=== PATIENT | female | born 1935 | race Caucasian/White ===

== ENCOUNTER 2020-05-20 17:44 | Inpatient (IN) | payer MEDICARE, SELFPAY ==
[2020-05-20 17:56] VITALS: BP 146/80; PULSE 70; PULSE 73; RESP 16; TEMP 36.4; O2SAT 93; O2SAT 98; BMI 27.0
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
[2020-05-20] MEDS: Magnesium Citrate 300 ML PO (21:08)
[2020-05-20] MEDS: Atorvastatin Calcium 40 MG Tablet PO (21:08)
[2020-05-20] MEDS: oxyCODONE 5 MG Tablet PO (22:11)
[2020-05-21 03:29] VITALS: BP 111/59; PULSE 69; RESP 16; TEMP 37.1; O2SAT 95
[2020-05-21] MEDS: amLODIPine 5 MG Tablet PO (05:35)
[2020-05-21] MEDS: Levothyroxine 50 MCG Tablet PO (05:35)
[2020-05-21] MEDS: APIXABAN 2.5 MG TABLET PO ×2 (05:35→17:09)
[2020-05-21 07:07] LABS: Absolute Lymphocyte Count 0.89 X10^3/uL (0.83-4.51); Absolute Neutrophil Count 6.1 X10^3/uL (2.0-7.7); Basophil# 0.03 X10^3/uL; Basophil% 0.4 % (0-1); Eosinophils% 2.4 % (0-5); Hematocrit 29.4 % (37-47); Hemoglobin 9.7 g/dL (12.0-15.0); Lymphocyte # 0.89 X10^3/ul (4.0); Lymphocyte % 10.6 % (19-41); Mean Platelet Vol. 9.7 fl (6.2-12.0); Monocyte# 1.22 X10^3/uL; Monocyte% 14.5 % (0-10); NRBC Flagged by Analyzer 0 % (0-5); Neutrophil # 6.05 X10^3/uL (2.7-7.7); Neutrophil % 71.7 % (47-70); Platelet Count 200 K/mm3 (150-450); RBC Distribution Width CV 12.7 % (11.6-14.6); RBC Distribution Width SD 41.9 fl (35.1-43.9); Red Blood Count 3.23 M/mm3 (4.2-5.4); White Blood Count 8.4 K/mm3 (4.4-11.0)
[2020-05-21 07:30] LABS: Anion Gap 3 (5-15); BUN 15 mg/dL (7-18); BUN/Creat Ratio 15.1 RATIO (10-20); Chloride 104 mmol/L (98-107); Creatinine, Serum 0.99 mg/dL (0.55-1.02); EST Glomerular Filtration Rate 56 mL/min (>60); Est Glom Filt Rate - Afr Amer 68 mL/min (>60); Estimated Creatinine Clearance 36.53 ml/min; Glucose 117 mg/dL (74-106); Potassium 3.6 mmol/L (3.5-5.1); Sodium Level 136 mmol/L (136-145)
[2020-05-21] MEDS: Iron Polysaccharide Complex 150 MG CAPSULE PO (08:17)
[2020-05-21] MEDS: Tuberculin,Purif.prot.deriv. 50 TU/ML Vial 5 ML ID (13:13)
[2020-05-21 16:10] VITALS: BP 138/72; PULSE 76; RESP 18; TEMP 36.8; O2SAT 92
[2020-05-21] MEDS: Atorvastatin Calcium 40 MG Tablet PO (21:09)
[2020-05-21] MEDS: oxyCODONE 5 MG Tablet PO (21:09)
[2020-05-22 05:24] VITALS: BP 148/85; PULSE 69; RESP 18; TEMP 36.7; O2SAT 95
[2020-05-22] MEDS: Levothyroxine 50 MCG Tablet PO (05:26)
[2020-05-22] MEDS: amLODIPine 5 MG Tablet PO (05:26)
[2020-05-22] MEDS: oxyCODONE 5 MG Tablet PO ×2 (05:26→20:26)
[2020-05-22] MEDS: APIXABAN 2.5 MG TABLET PO ×2 (05:26→16:31)
[2020-05-22] MEDS: Iron Polysaccharide Complex 150 MG CAPSULE PO (07:55)
[2020-05-22] MEDS: traMADol 50 MG Tablet PO (14:14)
[2020-05-22] MEDS: Senna/Docusate Sodium 1 Tablet 2 TABLET PO (16:31)
[2020-05-22 16:37] VITALS: BP 144/84; PULSE 71; RESP 16; TEMP 37.2; O2SAT 96
[2020-05-22 16:38] VITALS: PULSE 71; RESP 16; O2SAT 96
[2020-05-22] MEDS: Atorvastatin Calcium 40 MG Tablet PO (20:26)
[2020-05-23 05:11] VITALS: BP 154/72; PULSE 70; RESP 17; TEMP 36.6; O2SAT 97
[2020-05-23] MEDS: oxyCODONE 5 MG Tablet PO ×2 (05:15→20:19)
[2020-05-23] MEDS: Levothyroxine 50 MCG Tablet PO (05:15)
[2020-05-23] MEDS: APIXABAN 2.5 MG TABLET PO ×2 (05:15→17:20)
[2020-05-23] MEDS: amLODIPine 5 MG Tablet PO (05:15)
[2020-05-23] MEDS: Iron Polysaccharide Complex 150 MG CAPSULE PO (07:59)
--- NOTE | 2020-05-23 08:54 | PCM.PN.RX ---
<Basil Almaraz D - Last Filed: 05/23/20 08:54> Progress Note - Pharmacy Subjective: TCU Admission Objective: Allergies aspirin [ASA] Allergy (Verified 05/20/20 18:44) Anaphylaxis Current Medications Generic Name Dose Route Start Last Admin Trade Name Freq PRN Reason Stop Dose Admin Acetaminophen 1,000 mg 05/20/20 19:52 Tylenol PO Q6H PRN Pain Score 1-3/10 Amlodipine Besylate 5 mg 05/21/20 06:00 05/23/20 05:15 Norvasc PO 5 mg DAILY ELLIS Administration Apixaban 2.5 mg 05/21/20 06:00 05/23/20 05:15 Eliquis PO 06/22/20 23:59 2.5 mg BID ELLIS Administration Atorvastatin Calcium 40 mg 05/20/20 22:00 05/22/20 20:26 Lipitor PO 40 mg QHS [facility] Administration Bisacodyl 10 mg 05/20/20 19:53 Dulcolax RECTAL DAILY PRN Constipation Levothyroxine Sodium 50 mcg 05/21/20 06:00 05/23/20 05:15 Synthroid PO 50 mcg DAILY [facility] Administration Oxycodone HCl 5 mg 05/20/20 19:53 05/23/20 05:15 Oxyir PO 5 mg Q4H PRN PRN Administration Pain Score 6-10/10 Polyethylene Glycol 17 gm 05/21/20 06:00 05/23/20 05:16 Miralax PO Not Given DAILY [facility] Polysaccharide Iron Complex 150 mg 05/21/20 08:00 05/23/20 07:59 [facility] Administration Senna/Docusate Sodium 2 tablet 05/21/20 06:00 05/23/20 05:16 Senokot-S, Chari-Colace PO Not Given BID [facility] Tramadol HCl 50 mg 05/20/20 19:52 05/22/20 14:14 Ultram PO 50 mg Q6H PRN PRN Administration Pain Score 4-5/10 Tuberculin PPD 5 tu 05/28/20 10:00 Tubersol, Aplisol, Ppd ID 05/28/20 10:01 X1 ONE Problem List Debility (Acute) Closed left hip fracture (Acute) Chronic kidney disease (Chronic) Hypertension (Chronic) Hyperlipidemia (Chronic) Anemia (Acute) Urinary retention (Acute) Vital Signs Temp Pulse Resp BP Pulse Ox 97.9 F 70 17 154/72 H 97 05/23/20 05:11 05/23/20 05:11 05/23/20 05:11 05/23/20 05:11 05/23/20 05:11 Oxygen Delivery Method Room Air Weight: 71.384 kg Body Mass Index (BMI) 27.0 Sodium 136 mmol/L (136-145) 05/21/20 06:58 Potassium 3.6 mmol/L (3.5-5.1) 05/21/20 06:58 Chloride 104 mmol/L (98-107) 05/21/20 06:58 Carbon Dioxide 29.0 mmol/L (21.0-32.0) 05/21/20 06:58 Anion Gap 3 (5-15) L 05/21/20 06:58 BUN 15 mg/dL (7-18) 05/21/20 06:58 Creatinine 0.99 mg/dL (0.55-1.02) 05/21/20 06:58 Est GFR (MDRD) Af Amer 68 mL/min (>60) 05/21/20 06:58 Est GFR (MDRD) Non-Af 56 mL/min (>60) L 05/21/20 06:58 BUN/Creatinine Ratio 15.1 RATIO (-20) 05/21/20 06:58 Glucose 117 mg/dL (74-106) H 05/21/20 06:58 Assessment/Plan: 1) Pain APAP for pain 1-3, tramadol 4-5, oxycodone 6-10. Continue to monitor daily pain scores, prn medication use. 2) HTN Amlodipine. Continue to monitor BP/HR. 3) Hypothyroidism Levothyroxine. Continue to monitor s/s hyper/hypothyroidism. 4) DVT PPx Apixaban thru 06/22. Continue to monitor s/s bleeding/clot. 5) HLD Atorvastatin. Continue to monitor lipids. Psychotropic Medications: None Unnecessary Medications: None Bowel Regimen: 6) Senna/s, PEG, prn bisacodyl. Continue to monitor prn medication use, for constipation/diarrhea. Date of Note:: 05/23/20 - Provider Comments Provider responsibility: Provider responsible to enter orders to implement recommendations <Rahul Baker Chi - Last Filed: 05/23/20 17:23> Progress Note - Pharmacy Subjective: [] Objective: Allergies aspirin [ASA] Allergy (Verified 05/20/20 18:44) Anaphylaxis Current Medications Generic Name Dose Route Start Last Admin Trade Name Freq PRN Reason Stop Dose Admin Acetaminophen 1,000 mg 05/20/20 19:52 Tylenol PO Q6H PRN Pain Score 1-3/10 Amlodipine Besylate 5 mg 05/21/20 06:00 05/23/20 05:15 Norvasc PO 5 mg DAILY [facility] Administration Apixaban 2.5 mg 05/21/20 06:00 05/23/20 17:20 Eliquis PO 06/22/20 23:59 2.5 mg BID ELLIS Administration Atorvastatin Calcium 40 mg 05/20/20 22:00 05/22/20 20:26 Lipitor PO 40 mg QHS [facility] Administration Bisacodyl 10 mg 05/20/20 19:53 Dulcolax RECTAL DAILY PRN Constipation Levothyroxine Sodium 50 mcg 05/21/20 06:00 05/23/20 05:15 Synthroid PO 50 mcg DAILY [facility] Administration Oxycodone HCl 5 mg 05/20/20 19:53 05/23/20 05:15 Oxyir PO 5 mg Q4H PRN PRN Administration Pain Score 6-10/10 Polyethylene Glycol 17 gm 05/21/20 06:00 05/23/20 05:16 Miralax PO Not Given DAILY [facility] Polysaccharide Iron Complex 150 mg 05/21/20 08:00 05/23/20 07:59 [facility]rex 150 [facility] Administration Senna/Docusate Sodium 2 tablet 05/21/20 06:00 05/23/20 12:49 Senokot-S, Chari-Colace PO Not Given BID [facility] Tramadol HCl 50 mg 05/20/20 19:52 05/22/20 14:14 Ultram PO 50 mg Q6H PRN PRN Administration Pain Score 4-5/10 Tuberculin PPD 5 tu 05/28/20 10:00 Tubersol, Aplisol, Ppd ID 05/28/20 10:01 X1 ONE Problem List Debility (Acute) Closed left hip fracture (Acute) Chronic kidney disease (Chronic) Hypertension (Chronic) Hyperlipidemia (Chronic) Anemia (Acute) Urinary retention (Acute) Vital Signs Temp Pulse Resp BP Pulse Ox 98.9 F 78 17 126/77 H 96 05/23/20 13:55 05/23/20 13:55 05/23/20 13:55 05/23/20 13:55 05/23/20 13:55 Oxygen Delivery Method Room Air Weight: 71.384 kg Body Mass Index (BMI) 27.0 Sodium 136 mmol/L (136-145) 05/21/20 06:58 Potassium 3.6 mmol/L (3.5-5.1) 05/21/20 06:58 Chloride 104 mmol/L (98-107) 05/21/20 06:58 Carbon Dioxide 29.0 mmol/L (21.0-32.0) 05/21/20 06:58 Anion Gap 3 (5-15) L 05/21/20 06:58 BUN 15 mg/dL (7-18) 05/21/20 06:58 Creatinine 0.99 mg/dL (0.55-1.02) 05/21/20 06:58 Est GFR (MDRD) Af Amer 68 mL/min (>60) 05/21/20 06:58 Est GFR (MDRD) Non-Af 56 mL/min (>60) L 05/21/20 06:58 BUN/Creatinine Ratio 15.1 RATIO (10-20) 05/21/20 06:58 Glucose 117 mg/dL (74-106) H 05/21/20 06:58 Assessment/Plan: Psychotropic Medications: Unnecessary Medications: Bowel Regimen: - Provider Comments Provider responsibility: Provider responsible to enter orders to implement recommendations Provider Comments to Recommendations by Pharmacy: Agree
--- NOTE | 2020-05-23 12:49 | NURSING ---
Addendum entered by Angelina Sidhu 05/23/20 12:50: Resident states she had been seeing BERTO Elena at [facility] prior to fracturing her hip. Original Note: Bandage to Lt hip in place till F/U with surgeon. Resident asking if she can go to [facility] for follow up instead of going to [place] to see the surgeon there. We will look into this.
[2020-05-23 13:55] VITALS: BP 126/77; PULSE 78; RESP 17; TEMP 37.2; O2SAT 96
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
[2020-05-23] MEDS: Atorvastatin Calcium 40 MG Tablet PO (20:19)
[2020-05-24 04:11] VITALS: BP 153/84; PULSE 67; RESP 18; TEMP 36.8; O2SAT 96
[2020-05-24] MEDS: amLODIPine 5 MG Tablet PO (04:13)
[2020-05-24] MEDS: Levothyroxine 50 MCG Tablet PO (04:13)
[2020-05-24] MEDS: Polyethylene Glycol 3350 17 GM PACKET PO (04:13)
[2020-05-24] MEDS: Senna/Docusate Sodium 1 Tablet 2 TABLET PO (04:13)
[2020-05-24] MEDS: APIXABAN 2.5 MG TABLET PO ×2 (04:13→16:22)
--- NOTE | 2020-05-24 08:31 | DCINST_ITS ---
- Discharge Diagnoses Current Active Problems: Current Active and Chronic Problems Debility (Acute) Closed left hip fracture (Acute) Chronic kidney disease (Chronic) Hypertension (Chronic) Hyperlipidemia (Chronic) Anemia (Acute) Urinary retention (Acute) You will use the following diet at home:: No restrictions, Regular Your food should be the consistency of: Regular Your liquids should be the consistency of: Regular/Thin Discharge Activity: Return to Normal Activity, May Shower, Use Walker Weight Bearing Status: Weight bearing as tolerated Call your doctor if your incision/area has: Increased Redness Call your doctor if you observe: Inability to urinate, Inability to have a bowel movement, Shortness of breath, Chest pain, Uncontrolled pain Allergies/Adverse Reactions: Allergies aspirin [ASA] Allergy (Verified 05/20/20 18:44) Anaphylaxis Medications to take at Discharge Amlodipine [Norvasc] 5 mg PO DAILY 05/20/20 Atorvastatin Calcium [Lipitor] 40 mg PO QHS 05/20/20 Levothyroxine [Synthroid] 50 mcg PO DAILY 05/20/20 Acetaminophen [Tylenol] 1,000 mg PO Q6H PRN tablet 05/24/20 Apixaban [Eliquis] 2.5 mg PO BID #54 tab 05/24/20 Iron Polysaccharide Complex [Ferrex 150] 150 mg PO DAILYCM #30 cap 05/24/20 Oxycodone [Oxyir] 5 mg PO Q4H PRN PRN 7 Days #42 tablet 05/24/20 Polyethylene Glycol 3350 [Miralax] 17 gm PO DAILY PRN #30 packet 05/24/20 Senna/Docusate Sodium [Senokot-S] 2 tab PO BID #120 tab 05/24/20 traMADol [Ultram] 50 mg PO Q6H PRN PRN 7 Days #28 tablet 05/24/20 The following prescriptions were given: Apixaban [Eliquis] 2.5 mg PO BID #54 tab Transmission Status: P[facility] to [facility] Iron Polysaccharide Complex [Ferrex 150] 150 mg PO DAILYCM #30 cap Transmission Status: Pending to [facility] Polyethylene Glycol 3350 [Miralax] 17 gm PO DAILY PRN #30 packet PRN Reason: Constipation Transmission Status: P[facility] to [facility] Oxycodone [Oxyir] 5 mg PO Q4H PRN PRN 7 Days #42 tablet PRN Reason: Pain Score 6-10/10 Transmission Status: Sent to [facility] Senna/Docusate Sodium [Senokot-S] 2 tab PO BID #120 tab Transmission Status: Pending to [facility] traMADol [Ultram] 50 mg PO Q6H PRN PRN 7 Days #28 tablet PRN Reason: Pain Score 4-5/10 Transmission Status: Sent to [facility] Primary Care Physician: TRA BARRAZA [Other] Please follow up with your Primary Care Physician in: 1 week. Test Results: Test results from this visit will be discussed in further detail at your follow- up appointment, if applicable. Please Follow Up With: Fritz Rodriguez (surgeon in [place]) When: 2 weeks Proposed Discharge Date: 05/26/20
--- NOTE | 2020-05-24 08:32 | DS.PCM_ITS ---
Discharge Date and Diagnosis - Problem List Patient Problems: Active and Suspected Problems Debility (Acute) Closed left hip fracture (Acute) Anemia (Acute) Urinary retention (Acute) Date of Admission: 05/20/20 Date of Discharge: 05/26/20 - Primary Discharge Diagnosis Acute Problems: Active Problems Debility (Acute) Closed left hip fracture (Acute) Anemia (Acute) Urinary retention (Acute) - Secondary Discharge Diagnosis Chronic Problems: Chronic Problems Chronic kidney disease (Chronic) Hypertension (Chronic) Hyperlipidemia (Chronic) Hospital Course and Treatment Imaging Results: 05/20/20 18:07 Diet: Regular - General Food consistency:: Regular Liquid Consistency:: Regular/Thin Dietary Modifications:: Sodium Restricted Is pt able to select menu?: Yes Operations: None Procedures: None Summary of Care Provided: The patient is a 84 year old Female with below past medical history hospitalized for left hip fracture, underwent left total hip arthroplasty 05/17/20, admitted to TCU with debility, here for rehabilitation, strengthening, prior to discharge home with . Discharge home to daughter's house, No needs. Patient Problems: Active and Suspected Problems Debility (Acute) Closed left hip fracture (Acute) Anemia (Acute) Urinary retention (Acute) - Physical Exam Vitals/I&O's: Vital Signs Temp Pulse Resp BP Pulse Ox 98.3 F 67 18 153/84 H 96 05/24/20 04:11 05/24/20 04:11 05/24/20 04:11 05/24/20 04:11 05/24/20 04:11 Oxygen Delivery Method Room Air Weight: 71.384 kg Body Mass Index (BMI) 27.0 Intake and Output for Last 24 Hours 05/22/20 05/23/20 05/24/20 23:59 23:59 23:59 Intake Total 420 / 420 1000 / 1000 Balance 420 / 420 1000 / 1000 Current Medications Acetaminophen (Tylenol) 1,000 mg PO Q6H PRN PRN Reason: Pain Score 1-3/10 Amlodipine Besylate (Norvasc) 5 mg PO DAILY [facility] Last Admin: 05/24/20 04:13 Dose: 5 mg Documented by: Apixaban (Eliquis) 2.5 mg PO BID [facility] Stop: 06/22/20 23:59 Last Admin: 05/24/20 04:13 Dose: 2.5 mg Documented by: Atorvastatin Calcium (Lipitor) 40 mg PO QHS [facility] Last Admin: 05/23/20 20:19 Dose: 40 mg Documented by: Bisacodyl (Dulcolax) 10 mg RECTAL DAILY PRN PRN Reason: Constipation Levothyroxine Sodium (Synthroid) 50 mcg PO DAILY [facility] Last Admin: 05/24/20 04:13 Dose: 50 mcg Documented by: Oxycodone HCl (Oxyir) 5 mg PO Q4H PRN PRN PRN Reason: Pain Score 6-10/10 Last Admin: 05/23/20 20:19 Dose: 5 mg Documented by: Polyethylene Glycol (Miralax) 17 gm PO DAILY [facility] Last Admin: 05/24/20 04:13 Dose: 17 gm Documented by: Pol[facility]accharide [facility] 150[facility] Last Admin: 05/23/20 07:59 Dose: 150 mg Documented by: Senna/Docusate Sodium (Senokot-S, Chari-Colace) 2 tablet PO BID [facility] Last Admin: 05/24/20 04:13 Dose: 2 tablet Documented by: Tramadol HCl (Ultram) 50 mg PO Q6H PRN PRN PRN Reason: Pain Score 4-5/10 Last Admin: 05/22/20 14:14 Dose: 50 mg Documented by: Tuberculin PPD (Tubersol, Aplisol, Ppd) 5 tu ID [id number] ONE Stop: 05/28/20 10:01 Discharge Diet: No Restrictions Discharge Activity: Return to Normal Activity, May Shower, Use Walker Weight Bearing Status: Weight bearing as tolerated Call your doctor if your incision/area has: Increased Redness Call your doctor if you observe: Inability to urinate, Inability to have a bowel movement, Shortness of breath, Chest pain, Uncontrolled pain Home Medications: Medications to take at Discharge Amlodipine [Norvasc] 5 mg PO DAILY 05/20/20 Atorvastatin Calcium [Lipitor] 40 mg PO QHS 05/20/20 Levothyroxine [Synthroid] 50 mcg PO DAILY 05/20/20 Acetaminophen [Tylenol] 1,000 mg PO Q6H PRN tablet 05/24/20 Apixaban [Eliquis] 2.5 mg PO BID #54 tab 05/24/20 Iron Polysaccharide Complex [Ferrex 150] 150 mg PO DAILY #30 cap 05/24/20 Oxycodone [Oxyir] 5 mg PO Q4H PRN PRN 7 Days #42 tablet 05/24/20 Polyethylene Glycol 3350 [Miralax] 17 gm PO DAILY PRN #30 packet 05/24/20 Senna/Docusate Sodium [Senokot-S] 2 tab PO BID #120 tab 05/24/20 traMADol [Ultram] 50 mg PO Q6H PRN PRN 7 Days #28 tablet 05/24/20 Following Prescriptions Were Given to Patient: Apixaban [Eliquis] 2.5 mg PO BID #54 tab Transmission Status: Pending to [facility] Iron Polysaccharide Complex [Ferrex 150] 150 mg PO DAILYCM #30 cap Transmission Status: Pending to [facility] Polyethylene Glycol 3350 [Miralax] 17 gm PO DAILY PRN #30 packet PRN Reason: Constipation Transmission Status: Pending to [facility] Oxycodone [Oxyir] 5 mg PO Q4H PRN PRN 7 Days #42 tablet PRN Reason: Pain Score 6-10/10 Transmission Status: [facility] Senna/Docusate Sodium [Senokot-S] 2 tab PO BID #120 tab Transmission Status: Pending to [facility] 181 traMADol [Ultram] 50 mg PO Q6H PRN PRN 7 Days #28 tablet PRN Reason: Pain Score 4-5/10 Transmission Status: Sent to [facility] Primary Care Physician: TRA BARRAZA [Other] Please follow up with your Primary Care Physician in: 1 week. Please Follow Up With: Fritz Rodriguez (surgeon in [place]) When: 2 weeks Disposition: Home Minutes spent on discharge:: 30 Patient Condition:: Stable Medical Necessity - Tobacco Use Smoking Status: Never smoker Tobacco Use: Non-smoker Meaningful Use Info Meaningful Use Diagnoses (Choose all that apply): None applicable
[2020-05-24] MEDS: Iron Polysaccharide Complex 150 MG CAPSULE PO (09:10)
[2020-05-24 15:03] VITALS: BP 105/50; PULSE 68; RESP 15; TEMP 37; O2SAT 95
[2020-05-24] MEDS: oxyCODONE 5 MG Tablet PO (21:03)
[2020-05-24] MEDS: Atorvastatin Calcium 40 MG Tablet PO (21:04)
--- NOTE | 2020-05-24 22:42 | NURSING ---
Addendum entered by Medina Jack 05/25/20 05:21: 0345- pt up to restroom with 1 assist. states numbness in toes has resolved. Original Note: Pt c/o new numbness to bilateral toes. Able to feel this RN touching each toe. Capillary refill <3 seconds each toe. Pedal pulses strong bilaterally. No edema noted to feet or calves. Denies pain in feet/calves. Feet elevated on pillows. Will monitor.
[2020-05-25] MEDS: oxyCODONE 5 MG Tablet PO (03:25)
[2020-05-25 03:27] VITALS: BP 121/67; PULSE 75; RESP 18; TEMP 36.9; O2SAT 99
[2020-05-25] MEDS: Levothyroxine 50 MCG Tablet PO (06:12)
[2020-05-25] MEDS: APIXABAN 2.5 MG TABLET PO ×2 (06:12→17:00)
[2020-05-25] MEDS: amLODIPine 5 MG Tablet PO (06:12)
[2020-05-25] MEDS: Iron Polysaccharide Complex 150 MG CAPSULE PO (08:22)
--- NOTE | 2020-05-25 11:00 | CASEMGMT ---
BIMS and PHQ9 interviews completed on this date for MDS assessment. ASHLEIGH Mark
[2020-05-25 14:07] VITALS: BP 105/67; PULSE 71; RESP 16; TEMP 37.2; O2SAT 96
--- NOTE | 2020-05-25 16:32 | CASEMGMT ---
Social Work IDT met with patient and dtr via conference call for care plan meeting. Discussed patient's progress in therapy. Pt is adlib in room, Justina for all ADLS, Karol for below the knee LE bathing. Pt to DC to dtr's house 05/26 with no needs. No concerns noted. Soraida Sagastume, ENGLISH TEACHER BULK DRIVER
[2020-05-25] MEDS: Senna/Docusate Sodium 1 Tablet 2 TABLET PO (17:00)
[2020-05-25] MEDS: Acetaminophen 500 MG Tablet 1000 MG PO (17:00)
[2020-05-25] MEDS: Atorvastatin Calcium 40 MG Tablet PO (20:44)
[2020-05-26] MEDS: oxyCODONE 5 MG Tablet PO ×2 (00:06→05:57)
[2020-05-26 05:00] VITALS: BP 116/72; PULSE 68; RESP 16; TEMP 37; O2SAT 94
[2020-05-26] MEDS: APIXABAN 2.5 MG TABLET PO (05:52)
[2020-05-26] MEDS: Levothyroxine 50 MCG Tablet PO (05:52)
[2020-05-26] MEDS: amLODIPine 5 MG Tablet PO (05:52)
[2020-05-26] MEDS: Iron Polysaccharide Complex 150 MG CAPSULE PO (08:03)
[2020-05-26 10:00] VITALS: PULSE 92; RESP 16; O2SAT 99
[2020-05-26 10:17] VITALS: BP 112/55; PULSE 92; RESP 16; TEMP 36.4; O2SAT 99
--- NOTE | 2020-06-02 08:10 | MDS.RN ---
Information for the mds was obtained from review of the clinical record, interview of resident, staff, and direct observation of resident's care.
== END 2020-05-26 10:15 | disposition home or self-care (01) | DRG 561 ==
PROVIDERS: Admitting Provider Family Medicine Geriatric Medicine; Visit Provider Family Medicine Geriatric Medicine
DX: S72.002D Fracture of unspecified part of neck of left femur, subsequent encounter for closed fracture with routine healing (principal); V19.9XXD Pedal cyclist (driver) (passenger) injured in unspecified traffic accident, subsequent encounter; E78.5 Hyperlipidemia, unspecified; Z23 Encounter for immunization; I12.9 Hypertensive chronic kidney disease with stage 1 through stage 4 chronic kidney disease, or unspecified chronic kidney disease; N18.9 Chronic kidney disease, unspecified; D50.9 Iron deficiency anemia, unspecified; E03.9 Hypothyroidism, unspecified
CPT/HCPCS: 36415; 80048; 85025; 87635; 97110; 97116; 97161; 97165; 97530; 97535; 97802; C9803; G0008; 90686; U0003

== ENCOUNTER 2021-05-14 14:29 | Emergency (ER) | payer MEDICARE, SELFPAY ==
[2021-05-14 14:30] VITALS: BP 112/84; PULSE 78; RESP 16; TEMP 36.6; O2SAT 95; BMI 27.1
--- NOTE | 2021-05-14 15:43 | EKG12_ITS ---
Test Reason : SOB Blood Pressure : / mmHG Vent. Rate : 076 BPM Atrial Rate : 076 BPM P-R Int : 172 ms QRS Dur : 086 ms QT Int : 416 ms P-R-T Axes : 050 -23 018 degrees QTc Int : 468 ms Normal sinus rhythm Normal ECG Confirmed by ALEXY ALANIS, ROMAN ([id number]), communications editor JULIA DIEGO ([id number]) on 05/15/2021 1:49:02 PM Referred By: Confirmed By:ROMAN TRACEY MD
--- NOTE | 2021-05-14 15:43 | ED.VIS.DYS ---
HPI History of Present Illness Chief Complaint: Cough Detail of Chief Complaint: Cough that started 8 days ago Informant: patient Narrative Narrative: Patient presents to the emergency department complaint of a cough that started 8 days ago. Patient states that she had driven to [place] with family from May 06-. Patient was seen at urgent care 6 days ago and started on doxycycline and had a chest x-ray that showed possible early pneumonia. Patient also had a negative COVID-19 test at that time. Patient has been immunized against Covid. Patient continues to cough. Patient also has had vomiting and diarrhea both. She denies loss of taste or smell. No other sick contacts known. [facility] Medical History (Updated 05/14/21 @ 19:[address] Lucy Tyler, DO) Brain aneurysm Hypothyroidism Home Medications amlodipine 5 mg PO DAILY PRN 05/20/20 [History Last Taken Unknown] atorvastatin 40 mg PO QHS 05/20/20 [History Last Taken Unknown] levothyroxine 50 mcg PO DAILY 05/20/20 [History Last Taken Unknown] acetaminophen 1,000 mg PO Q6H PRN tab 05/24/20 [Rx Last Taken Unknown] benzonatate 200 mg PO TID PRN #20 cap 05/14/21 [Rx Last Taken Unknown] cetirizine 10 mg PO DAILY PRN 05/14/21 [History Last Taken Unknown] clopidogrel 75 mg PO DAILY 05/14/21 [History Last Taken Unknown] doxycycline hyclate 100 mg PO BID 05/14/21 [History Last Taken Unknown] levofloxacin 750 mg PO DAILY #5 tab 05/14/21 [Rx Last Taken Unknown] meclizine 25 mg PO TID PRN 05/14/21 [History Last Taken Unknown] mirabegron [Myrbetriq] 25 mg PO DAILY 05/14/21 [History Last Taken Unknown] Allergy/AdvReac Type Severity Reaction Status Date / Time aspirin [ASA] Allergy Anaphylaxis Verified 05/14/21 14:32 Surgical History (Updated 05/14/21 @ 16:31 by Kari Hercules) History of hip replacement Social History Smoking Status: Never smoker ROS ROS ED Constitutional Constitutional ED: Reports systems reviewed and no addt'l complaints, except as documented; Denies body ache(s), change in weight or chills Eyes Eyes: Denies acute decrease in peripheral vision, change in vision, double vision or loss of vision ENT ENT ED: Reports none; Denies ear pain, lip swelling, loss taste/smell, neck pain, otalgia or sore throat Cardiovascular Cardiovascular: Reports none; Denies abdominal pain, chest pain with activity, leg edema, lightheadedness, palpitations, rapid heart rate or syncope Respiratory/Chest Respiratory/Chest: Reports none, cough and sputum; Denies change in mental status, dry cough, dyspnea, hemoptysis, shortness of breath at rest or shortness of breath with exertion Gastrointestinal Gastrointestinal: Reports none, diarrhea and vomiting; Denies abdominal pain, change in stool character, hematemesis, hematochezia, melena or rectal bleeding Genitourinary Genitourinary ED: Reports none; Denies abdominal discomfort, anuria, dysuria, genital pain or polyuria Musculoskeletal Musculoskeletal: Reports none; Denies arthralgias, back pain, difficulty walking, extremity pain, muscle weakness or myalgias Integumentary Reports none; Denies abscess or rash Neurologic Neurologic: Reports none; Denies abnormal gait, confusion, focal weakness, frequent falls, headache(s), loss of vision, numbness, paresthesias, radicular pain, vertigo or weakness Psychiatric Psychiatric: Reports systems reviewed and no addt'l complaints, except as documented and none; Denies behavioral changes, confusion, difficulty concentrating, hallucinations, suicidal ideation, tactile hallucinations or visual hallucinations Endocrine Endocrinology: Denies none, cold intolerance, excessive sweating, fatigue or heat intolerance Hematologic/Lymphatic Hematologic/Lymphatic: Reports none; Denies anemia, easy bleeding or easy bruising Allergic/Immunologic Allergic/Immunologic ED: Denies as per HPI, none, lip swelling, mouth swelling, throat swelling, tongue swelling or hives EXAM Physical Exam Const Vital Signs: 05/14/21 14:30 05/14/21 16:29 05/14/21 16:34 Temperature 97.9 F Temperature Source Temporal Pulse Rate 78 77 Respiratory Rate 16 19 H Respiratory Depth Normal Respiratory Pattern Normal Blood Pressure 112/84 H Blood Pressure Mean 93 Pulse Ox 95 95 Oxygen Delivery Method Room Air Room Air Room Air 05/14/21 18:06 05/14/21 19:14 Temperature Temperature Source Pulse Rate 89 92 Respiratory Rate 20 H 24 H Respiratory Depth Respiratory Pattern Blood Pressure 170/108 H 191/98 H Blood Pressure Mean 128 129 Pulse Ox 94 93 Oxygen Delivery Method Room Air Positive well nourished and well developed General Appearance ED: well developed and NAD HEENT Reports TM's clear and moist mucous membranes normocephalic and atraumatic; Negative for trauma or tenderness Tympanic Membrane ED: Yes TM's clear Eyes PERRL and EOMs intact bilaterally General Eye ED: Negative for pale conjunctiva or scleral icterus Neck no lymphadenopathy, supple and no JVD General: Negative for tenderness Chest Wall inspection of chest normal and palpation of chest normal Chest: Negative for tenderness Resp normal respiratory effort Resp Narrative: Patient noted to have few rales in the left lower lobe. No accessory muscle use or retractions. Effort and Inspection: Negative for respiratory distress or pain with movement Auscultation: Negative for rhonchi, wheezes or diminished lung sounds Cardio regular rate, regular rhythm, S1 normal heart sound, S2 normal heart sound and no murmurs Peripheral Pulses: pulses 2+ throughout GI normal to inspection, nondistended, normoactive bowel sounds, soft to palpation, non-tender, non-distended and no masses Back/Spine no CVA tenderness and no thoracic nor lumbar tenderness Extremity normal to inspection General Extremety ED: Negative for edema General Extremity: Negative for edema Neuro oriented x3, CN's II-XII intact bilaterally, no sensory deficits noted and gait normal Sensorium / Orientation: awake, alert, oriented to person, oriented to place and oriented to time Motor Exam: strength 5/5 throughout and strength abnormal Psych mental status grossly normal Skin no rashes or lesions noted and no wounds MDM MDM MDM Narrative Medical decision making narrative: <del>Results</del> <del>discussed</del> <del>with</del> <del>patient.</del> <del>Her</del> <del>PCR</del> <del>Covid</del> <del>test</del> <del>was</del> <del>negative.</del> <del>CT</del> <del>shows</del> <del>bibasilar</del> <del>infiltrates</del> <del>which</del> <del>could</del> <del>be</del> <del>atypical</del> <del>pneumonia.</del> <del>Patient</del> <del>already</del> <del>on</del> <del>doxycycline</del> <del>but</del> <del>will</del> <del>also</del> <del>add</del> <del>Levaquin</del> <del>for</del> <del>5</del> <del>days.</del> <del>Patient</del> <del>is</del> <del>hemodynamically</del> <del>stable</del> <del>and</del> <del>in</del> <del>no</del> <del>respiratory</del> <del>distress.</del> <del>I</del> <del>will</del> <del>give</del> <del>her</del> <del>Tessalon</del> <del>Melissa.</del> <del>Will</del> <del>refer</del> <del>patient</del> <del>to</del> <del>Dr.</del> <del>Olehge</del> <del>for</del> <del>follow-up.</del> <del>Patient</del> <del>advised</del> <del>to</del> <del>return</del> <del>if</del> <del>increasing</del> <del>shortness</del> <del>of</del> <del>breath</del> <del>or</del> <del>condition</del> <del>should</del> <del>worsen</del> <del>anyway.</del> Lab Data Attestation: I reviewed the patient's lab results. Labs: Laboratory Results - last 24 hr 05/14/21 05/14/21 05/14/21 16:15 16:24 16:24 WBC 15.9 H RBC 4.21 Hgb 12.9 Hct 38.1 MCV 90.5 MCH 30.6 MCHC 33.9 RDW Std Deviation 39.6 RDW Coeff of Pedro 11.9 Plt Count 364 MPV 8.9 Immature Gran % (Auto) 2.000 H Neut % (Auto) 76.1 H Lymph % (Auto) 8.4 L Garza % (Auto) 13.1 H Eos % (Auto) 0.1 Baso % (Auto) 0.3 Absolute Neuts (auto) 12.1 H Absolute Lymphs (auto) 1.34 Nucleated RBC % 0 Differential Comment SCANNED Diff Path Review May foll D-Dimer Quant (PE/DVT) 0.92 H* Sodium Potassium Chloride Carbon Dioxide Anion Gap BUN Creatinine Estim Creat Clear Calc Est GFR (MDRD) Af Amer Est GFR (MDRD) Non-Af BUN/Creatinine Ratio Glucose Calcium Troponin I High Sens B-Natriuretic Peptide COVID-19 (JANETTE) Negative 05/14/21 05/14/21 16:24 16:24 WBC RBC Hgb Hct MCV MCH MCHC RDW Std Deviation RDW Coeff of Pedro Plt Count MPV Immature Gran % (Auto) Neut % (Auto) Lymph % (Auto) Garza % (Auto) Eos % (Auto) Baso % (Auto) Absolute Neuts (auto) Absolute Lymphs (auto) Nucleated RBC % Differential Comment Diff Path Review D-Dimer Quant (PE/DVT) Sodium 135 L Potassium 3.4 L Chloride 97 L Carbon Dioxide 29.0 Anion Gap 9 BUN 18 Creatinine 1.12 H Estim Creat Clear Calc 33.05 Est GFR (MDRD) Af Amer 59 L Est GFR (MDRD) Non-Af 49 L BUN/Creatinine Ratio 16.1 Glucose 112 H Calcium 9.3 Troponin I High Sens 39 B-Natriuretic Peptide 36.7 COVID-19 (JANETTE) Radiography Chest X-Ray - ED: 1 View (1 view chest x-ray obtained interpreted by myself as no acute disease process. Radiology in agreement.) Diagnostic Testing: Radiology Impression Chest X-Ray 05/14/21 16:00 IMPRESSION: No acute radiographic abnormalities. Electronically Signed: Rodolfo Wilson MD at 16:42 EDT Tel , Service support , Chest CTA 05/14/21 17:21 IMPRESSION: Negative CTA Chest. Bibasilar airspace disease suspicious for pneumonia including atypical or viral pneumonia. Individualized dose optimization techniques were used for this CT. at 1830 Reported and signed by: Aleks Arrieta MD Electronically Signed: Aleks Arrieta MD at 18:29 EDT Tel , Service support , EKG Initial EKG: Attestation: I personally reviewed and interpreted this EKG as follows: Comments: Sinus rhythm with a ventricular rate of 76 bpm with no acute ST segment changes. Discharge Plan Triage Chief Complaint: Cough ED Provider: Lucy Tyler Dx/Rx/DC Orders Clinical Impression: Pneumonia Instructions: ED Pneumonia (Adult) Prescriptions: New levofloxacin 750 mg tablet 750 mg PO DAILY Qty: 5 RF: 0 benzonatate 200 mg capsule 200 mg PO TID PRN (Reason: cough) Qty: 20 RF: 0 No Action atorvastatin 40 MG tablet 40 mg PO QHS RF: 0 amlodipine 5 MG tablet 5 mg PO DAILY PRN (Reason: Hypertension) RF: 0 levothyroxine 50 MCG tablet 50 mcg PO DAILY RF: 0 acetaminophen 500 MG tablet 1,000 mg PO Q6H PRN (Reason: Pain Score 1-3/10) RF: 0 cetirizine 10 mg Tablet 10 mg PO DAILY PRN (Reason: Allergic Symptoms) RF: 0 clopidogrel 75 mg Tablet 75 mg PO DAILY RF: 0 meclizine 25 mg Tablet 25 mg PO TID PRN (Reason: Dizziness) RF: 0 doxycycline hyclate 100 mg Tablet 100 mg PO BID RF: 0 Myrbetriq 25 mg Tablet Extended Release 24 Hr 25 mg PO DAILY RF: 0 Referrals: TRA BARRAZA [Other] Disposition Disposition: Home, Self Care
--- NOTE | 2021-05-14 16:00 | RAD_ITS ---
INDICATION: cough EXAMINATION/TECHNIQUE: X-RAY - XR Chest 1 View COMPARISON: None. FINDINGS: The lungs are clear. Bibasilar atelectasis. The cardiomediastinal silhouette is unremarkable. No pleural effusion or pneumothorax. No acute osseous abnormalities. RAD/Chest 1 View (Portable) IMPRESSION: No acute radiographic abnormalities. Electronically Signed: Rodolfo Wilson MD at 16:42 EDT Tel , Service support ,
[2021-05-14 16:29] VITALS: O2SAT 94
[2021-05-14 16:34] VITALS: PULSE 77; RESP 19; O2SAT 95
[2021-05-14] MEDS: 0.9% Normal Saline 1,000 ML 150 ML IV (16:35)
[2021-05-14 17:02] LABS: Absolute Lymphocyte Count 1.34 X10^3/uL (0.83-4.51); Absolute Neutrophil Count 12.1 X10^3/uL (2.0-7.7); Basophil# 0.05 X10^3/uL; Basophil% 0.3 % (0-1); Eosinophil# 0.02 X10^3/uL; Eosinophils% 0.1 % (0-5); Hematocrit 38.1 % (37-47); Hemoglobin 12.9 g/dL (12.0-15.0); Lymphocyte # 1.34 X10^3/ul (0.83-4.51); Lymphocyte % 8.4 % (19-41); Mean Corp Hgb Conc 33.9 g/dL (32-36); Mean Corpuscular Hgb 30.6 pg (27.0-32.0); Mean Corpuscular Volume 90.5 fL (81-99); Mean Platelet Vol. 8.9 fl (6.2-12.0); Monocyte# 2.07 X10^3/uL; Monocyte% 13.1 % (0-10); NRBC Flagged by Analyzer 0 % (0-5); Neutrophil # 12.06 X10^3/uL (2.7-7.7); Neutrophil % 76.1 % (47-70); POSITIVE DIFFERENTIAL YES; Platelet Count 364 K/mm3 (150-450); RBC Distribution Width CV 11.9 % (11.6-14.6); RBC Distribution Width SD 39.6 fl (35.1-43.9); Red Blood Count 4.21 M/mm3 (4.2-5.4); White Blood Count 15.9 K/mm3 (4.4-11.0)
[2021-05-14 17:19] LABS: Anion Gap 9 (5-15); BUN 18 mg/dL (7-18); BUN/Creat Ratio 16.1 RATIO (10-20); Calcium,Total 9.3 mg/dL (8.5-10.1); Chloride 97 mmol/L (98-107); Creatinine, Serum 1.12 mg/dL (0.55-1.02); EST Glomerular Filtration Rate 49 mL/min (>60); Est Glom Filt Rate - Afr Amer 59 mL/min (>60); Estimated Creatinine Clearance 33.05 ml/min; Glucose 112 mg/dL (74-106); Potassium 3.4 mmol/L (3.5-5.1); Sodium Level 135 mmol/L (136-145); Troponin-I HS 39 pg/mL (3.0-54.0)
[2021-05-14 17:21] LABS: D-Dimer Quantitative (DVT/PE) 0.92 FEU/ug/m (0.27-0.49)
--- NOTE | 2021-05-14 17:21 | CT_ITS ---
HISTORY: cough, elevated d-dimer EXAMINATION: CTA Chest WO/W Contrast Injection TECHNIQUE: Helically acquired images were obtained of the chest following IV contrast as per pulmonary angiogram protocol with 3D reconstructions. A radiation dose optimization technique was used for this scan. IV Contrast dosage and agent: 100mL Isovue-370 COMPARISON: None FINDINGS: LUNGS, PLEURA AND LARGE AIRWAYS: Multifocal and bibasilar alveolar and groundglass opacities with scattered small areas of consolidation, left side greater than right. No pleural effusions or pneumothorax. THYROID: No thyroid lesions. PULMONARY ARTERIES: Normal in caliber. No pulmonary embolism. AORTA AND GREAT VESSELS: No aneurysm or dissection. HEART AND PERICARDIUM: Heart size is normal. No pericardial effusion. RV to LV ratio measures less than 1. MEDIASTINUM AND MIGUEL A: No mediastinal or hilar adenopathy. Esophagus is unremarkable. No hiatal hernia. UPPER ABDOMEN: No acute pathology. BONES: No acute or aggressive abnormality. CT/CTA Chest W/WO Contrast IMPRESSION: Negative CTA Chest. Bibasilar airspace disease suspicious for pneumonia including atypical or viral pneumonia. Individualized dose optimization techniques were used for this CT. at 1830 Reported and signed by: Aleks Arrieta MD Electronically Signed: Aleks Arrieta MD at 18:29 EDT Tel , Service support ,
[2021-05-14 17:26] LABS: Differential Comment SCANNED; Differential Indicated SCAN CRITERIA MET
[2021-05-14 17:45] LABS: BNP,B-Type NATRIURETIC PEPTIDE 36.7 pg/mL (0-100)
[2021-05-14 18:06] VITALS: BP 170/108; PULSE 89; RESP 20; O2SAT 94
[2021-05-14 18:14] LABS: Probe Check PASS; Specimen Processing Control PASS
[2021-05-14 19:14] VITALS: BP 191/98; PULSE 92; RESP 24; O2SAT 93
[2021-05-14] MEDS: levoFLOXacin 750 MG Tablet PO (20:19)
[2021-05-14 20:25] VITALS: BP 123/79; PULSE 81; RESP 24; O2SAT 97
--- NOTE | 2021-05-14 20:26 | ED.RN ---
THIS NURSE REVIEWED D/C INSTRUCTIONS WITH PT. PT VERBALIZED UNDERSTANDING OF INSTRUCTIONS. IV D/C. IV CATHETER INTACT. PT TOLERATED WELL. PT DENIES FURTHER NEEDS OR QUESTIONS AT THIS TIME
[2021-05-15 13:26] LABS: Pathologist Review Reviewed
== END 2021-05-14 20:27 | disposition home or self-care (01) ==
PROVIDERS: Emergency Provider Emergency Medicine
DX: J18.9 Pneumonia, unspecified organism (principal); E03.9 Hypothyroidism, unspecified; Z79.899 Other long term (current) drug therapy
CPT/HCPCS: 71045; 71275; 80048; 83880; 84484; 85025; 85379; 87040; 87633; 87635; 93005; 99285; J7030; Q9967; U0005; A4216; U0003

== ENCOUNTER 2021-05-17 23:06 | Inpatient (IN) | payer MEDICARE, SELFPAY ==
--- NOTE | 2021-05-17 | RAD_ITS ---
STUDY: X-RAY - PELVIS AND RIGHT HIP REASON FOR EXAM: Female, 85 years old. Injury/fall TECHNIQUE: 3 views of the pelvis and hip. COMPARISON: None. FINDINGS: There is a non-specific bowel gas pattern. Normal visualized soft tissue structures. There is narrowing with cortical sclerosis and osteophyte formation of the sacroiliac joint consistent with degenerative osteoarthritic changes. Normal bilateral superior and inferior pubic rami. Normal pubic symphysis. Normal bilateral ischial tuberosities. There is an acute subcapital femoral neck fracture with slight proximal migration. There is a left hip arthroplasty. The visualized degenerative change of the lower lumbar spine and SI joints. RAD/HIP, UNI W/ Pelvis 2-3 Views IMPRESSION: Acute right subcapital femoral neck fracture. Left hip arthroplasty. Electronically Signed: Cary Denton MD at 1:41 EDT Tel , Service support ,
[2021-05-17 23:07] VITALS: BP 132/73; PULSE 90; RESP 16; TEMP 36.9; O2SAT 93; BMI 28.8
[2021-05-17 23:11] VITALS: O2SAT 93
--- NOTE | 2021-05-17 23:35 | EDS_ITS ---
HPI HPI - Fall History of Present Illness Chief Complaint: Fall Informant: patient and EMS Occured/Mechanism Occurred: Today Mechanism/Context: Yes same level fall Usually ambulates: Without assistance Pain/Injury Location: R hip Current Severity: Moderate Maximum Severity: Severe Worsened by: movement, trying to WB Relieved by: remaining still LLD on bed/cot Associated Symptoms Associated Symptoms: Positive for Loss of function and Inability to ambulate; Negative for Parasthesias, Weakness, Loss of consciousness and Amnesia Narrative Narrative: Patient with history of vertigo, she was getting out of bed to urinate and became vertiginous causing her to fall, onto the floor versus her right hip with immediate pain and inability to move it or ambulate/weight-bear. She denies any other injury. She denies hitting her head, and denies headache, nausea, vomiting. She is not feeling vertiginous now that she is lying still. EMS wrapped her onto their inflatable body splint lying left lateral decubitus. She is on Plavix and states this is due to her cerebral aneurysm which is being watched, she has not had it intervened on. Patient is coughing, she states she was diagnosed with pneumonia recently and treated with antibiotics and she is recovering from a feeling much better than she was without dyspnea or fever now. [facility] Medical History Brain aneurysm Hypothyroidism Home Medications amlodipine 5 mg PO DAILY PRN 05/20/20 [History Last Taken Unknown] atorvastatin 40 mg PO QHS 05/20/20 [History Last Taken Unknown] levothyroxine 50 mcg PO DAILY 05/20/20 [History Last Taken Unknown] acetaminophen 1,000 mg PO Q6H PRN tab 05/24/20 [Rx Last Taken Unknown] benzonatate 200 mg PO TID PRN #20 cap 05/14/21 [Rx Last Taken Unknown] cetirizine 10 mg PO DAILY PRN 05/14/21 [History Last Taken Unknown] clopidogrel 75 mg PO DAILY 05/14/21 [History Last Taken Unknown] doxycycline hyclate 100 mg PO BID 05/14/21 [History Last Taken Unknown] levofloxacin 750 mg PO DAILY #5 tab 05/14/21 [Rx Last Taken Unknown] meclizine 25 mg PO TID PRN 05/14/21 [History Last Taken Unknown] mirabegron [Myrbetriq] 25 mg PO DAILY 05/14/21 [History Last Taken Unknown] Allergy/AdvReac Type Severity Reaction Status Date / Time aspirin [ASA] Allergy Anaphylaxis Verified 05/17/21 23:11 Surgical History (Updated 05/14/21 @ 16:31 by Kari Hercules) History of hip replacement Social History Smoking Status: Never smoker ROS ROS ED Constitutional Constitutional ED: Denies chills or fever(s) Eyes Eyes: Denies change in vision or diplopia ENT ENT ED: Denies rhinorrhea or sore throat Cardiovascular Cardiovascular: Denies chest pain or palpitations Respiratory/Chest Respiratory/Chest: Reports cough; Denies dyspnea Gastrointestinal Gastrointestinal: Denies abdominal pain, diarrhea, nausea or vomiting Genitourinary Genitourinary ED: Denies dysuria or hematuria Musculoskeletal Musculoskeletal: Reports as per HPI, extremity pain and limited range of motion; Denies back pain or neck pain Integumentary Denies abscess or rash Neurologic Neurologic: Reports vertigo; Denies headache(s), paresthesias or weakness Psychiatric Psychiatric: Denies anxiety or suicidal thoughts EXAM Physical Exam Const Vital Signs: 05/17/21 23:07 05/17/21 23:11 Temperature 98.4 F Temperature Source Temporal Pulse Rate 90 Respiratory Rate 16 Respiratory Effort Normal Respiratory Depth Normal Respiratory Pattern Normal Blood Pressure 132/73 H Blood Pressure Mean 92 Pulse Ox 93 93 Oxygen Delivery Method Room Air Room Air Positive well nourished and well developed General Appearance ED: well developed and NAD HEENT Reports moist mucous membranes normocephalic and atraumatic Eyes PERRL and EOMs intact bilaterally Neck full ROM and supple Resp normal respiratory effort and clear to auscultation bilaterally Cardio regular rate, regular rhythm and no murmurs GI non-tender and non-distended Auscultation: normoactive bowel sounds Palpation: soft Back/Spine no CVA tenderness General Back: other FROM Extremity normal to inspection Extremity Narrative: Limited range of motion right hip. Difficult to assess deformity since patient is wrapped tightly in the full body inflatable splint. Neurovascular intact distally, able to wiggle toes. No bony tenderness distal to the hip and the right lower extremity, she is tender at the greater trochanter. Pelvis is nontender and without instability. All other extremities move without any difficulty throughout all joints. Chest nontender. General Extremety ED: Yes tenderness; Negative for edema or pulses abnormal General Extremity: Negative for edema or pulses abnormal Neuro oriented x3, CN's II-XII intact bilaterally and no sensory deficits noted Sensorium / Orientation: awake and alert Motor Exam: strength 5/5 throughout Skin no rashes or lesions noted and no wounds MDM MDM MDM Narrative Medical decision making narrative: Patient's pain was treated and she was given prophylactic Zofran. X-rays 3 view of the right hip including the pelvis on my interpretation show a subcapital displaced right femoral neck fracture. The pelvic ring is intact. She remained clinically and hemodynamically stable, when I discussed these findings with her she turned her head and started getting nystagmus, nausea, and then vomiting, likely due to her vertigo which she has a history of. She was given Reglan in addition to the Zofran she had earlier. Discussed with Dr. Rodriguez with orthopedics, will have the patient n.p.o. after midnight and medically clear tomorrow for possible surgery. She is still on antibiotics for her pneumonia that was diagnosed 4 days ago. Lab Data Attestation: I reviewed the patient's lab results. Labs: Laboratory Results - last 24 hr 05/17/21 05/17/21 23:50 23:50 WBC 14.3 H RBC 4.18 L Hgb 12.6 Hct 38.2 MCV 91.4 MCH 30.1 MCHC 33.0 RDW Std Deviation 39.6 RDW Coeff of Pedro 11.8 Plt Count 354 MPV 8.5 Immature Gran % (Auto) 1.700 H Neut % (Auto) 76.3 H Lymph % (Auto) 11.2 L Mccormick % (Auto) 10.0 Eos % (Auto) 0.5 Baso % (Auto) 0.3 Absolute Neuts (auto) 10.9 H Absolute Lymphs (auto) 1.60 Nucleated RBC % 0 Sodium 135 L Potassium 3.6 Chloride 99 Carbon Dioxide 27.0 Anion Gap 9 BUN 18 Creatinine 1.30 H Estim Creat Clear Calc 28.47 Est GFR (MDRD) Af Amer 50 L Est GFR (MDRD) Non-Af 41 L BUN/Creatinine Ratio 13.8 Glucose 119 H Calcium 9.0 Discharge Plan Dx/Rx/DC Orders Clinical Impression: Closed subcapital fracture of neck of right femur, Pneumonia, Peripheral vertigo Disposition Disposition: Acute Care Hospital [facility]
[2021-05-17] MEDS: Ondansetron 4 MG/2 ML Vial IV (23:49)
[2021-05-17] MEDS: Morphine 4 MG/ML Syringe IV (23:49)
[2021-05-17 23:59] LABS: Absolute Neutrophil Count 10.9 X10^3/uL (2.0-7.7); Basophil# 0.05 X10^3/uL; Basophil% 0.3 % (0-1); Eosinophil# 0.07 X10^3/uL; Eosinophils% 0.5 % (0-5); Hematocrit 38.2 % (37-47); Hemoglobin 12.6 g/dL (12.0-15.0); Lymphocyte % 11.2 % (19-41); Mean Corpuscular Hgb 30.1 pg (27.0-32.0); Mean Corpuscular Volume 91.4 fL (81-99); Mean Platelet Vol. 8.5 fl (6.2-12.0); Monocyte# 1.43 X10^3/uL; NRBC Flagged by Analyzer 0 % (0-5); Neutrophil # 10.93 X10^3/uL (2.7-7.7); Neutrophil % 76.3 % (47-70); Platelet Count 354 K/mm3 (150-450); RBC Distribution Width CV 11.8 % (11.6-14.6); RBC Distribution Width SD 39.6 fl (35.1-43.9); Red Blood Count 4.18 M/mm3 (4.2-5.4); White Blood Count 14.3 K/mm3 (4.4-11.0)
[2021-05-18] VITALS (18 sets, daily range): BP systolic 128–173; BP diastolic 78–134; PULSE 66–92; RESP 14–19; TEMP 36.1–36.9; O2SAT 92–100; BMI 25.2; BMI 25.1
[2021-05-18] MEDS: Metoclopramide 10 MG/2 ML Vial 5 MG IV (00:48)
[2021-05-18 00:50] LABS: Anion Gap 9 (5-15); BUN 18 mg/dL (7-18); BUN/Creat Ratio 13.8 RATIO (10-20); Chloride 99 mmol/L (98-107); EST Glomerular Filtration Rate 41 mL/min (>60); Est Glom Filt Rate - Afr Amer 50 mL/min (>60); Estimated Creatinine Clearance 28.47 ml/min; Glucose 119 mg/dL (74-106); Potassium 3.6 mmol/L (3.5-5.1); Sodium Level 135 mmol/L (136-145)
--- NOTE | 2021-05-18 01:09 | HP.PCM.HOS_ITS ---
HPI - General General Date of Admission: 05/18/21 HPI Narrative CHICHI WYNNE, is a 85 F of a significant history of brain aneurysm on Plavix; and vertigo who presents to the emergency department with fall that occurred a few hours before presentation. Of note patient claudia from her bed to open/close a door. It was in the dark. She felt a spinning sensation and she fell landing on her right side and developed excruciating pain of her right hip. Associated with her symptoms is nausea and vomiting. Of note patient is on antibiotics for recently diagnosed pneumonia. [facility] Medical History Brain aneurysm Hypothyroidism Non-smoker Home Medications amlodipine 5 mg PO DAILY PRN 05/20/20 [History Last Taken Unknown] atorvastatin 40 mg PO QHS 05/20/20 [History Last Taken Unknown] levothyroxine 50 mcg PO DAILY 05/20/20 [History Last Taken Unknown] acetaminophen 1,000 mg PO Q6H PRN tab 05/24/20 [Rx Last Taken Unknown] benzonatate 200 mg PO TID PRN #20 cap 05/14/21 [Rx Last Taken Unknown] cetirizine 10 mg PO DAILY PRN 05/14/21 [History Last Taken Unknown] clopidogrel 75 mg PO DAILY 05/14/21 [History Last Taken Unknown] doxycycline hyclate 100 mg PO BID 05/14/21 [History Last Taken Unknown] levofloxacin 750 mg PO DAILY #5 tab 05/14/21 [Rx Last Taken Unknown] meclizine 25 mg PO TID PRN 05/14/21 [History Last Taken Unknown] mirabegron [Myrbetriq] 25 mg PO DAILY 05/14/21 [History Last Taken Unknown] Allergy/AdvReac Type Severity Reaction Status Date / Time aspirin [ASA] Allergy Anaphylaxis Verified 05/17/21 23:11 Family History Other Cancer Peptic ulcer disease Surgical History History of hip replacement Social History Smoking Status: Never smoker ROS ROS Narrative Constitutional: Denies anorexia and change in weight Eyes: Denies blurry vision, change in eye color, change in vision, discharge from eye(s), double vision, erythema, eye pain, loss of vision or other HEENT: Denies abnormal hearing, dysphagia, ear pain, epistaxis, headache(s), hearing loss, nasal congestion, nasal discharge, post nasal drip, sinus pressure, sore throat or other Cardiovascular: Denies chest pain or palpitations. Denies dyspnea on exertion, orthopnea and paroxysmal nocturnal dyspnea Respiratory/Chest: Denies cough, excessive phlegm production, shortness of breath with exertion and wheezing Gastrointestinal: Reports nausea and vomiting. Denies abdominal pain. Denies denies coffee ground emesis, constipation, diarrhea, dyspepsia, hematemesis, hematochezia, loose stools, melena, or other Genitourinary: Denies burning urination, difficulty urinating, dysuria, hematuria, nocturia, urinary frequency, urinary hesitancy, urinary incontinence, urinary urgency or other Musculoskeletal: Denies arthralgias, back pain, joint pain, joint stiffness, joint swelling, myalgias, neck pain or other Neurologic: Denies abnormal gait, abnormal speech, confusion, disequilibrium, dizziness, focal weakness, headache(s), numbness, paresthesias, seizure-like activity, seizures, syncope, tingling, tremor(s) or other Psychiatric: Denies anxiety, depression, homicidal ideation, suicidal ideation or other Endocrinology: Denies change in body appearance, cold intolerance, excessive sweating, heat intolerance, polydipsia, polyuria or other Hematologic/Lymphatic: Denies anemia, easy bleeding, easy bruising, lymphadenopathy or other Integumentary: Denies rashes Allergic/Immunologic: Denies rhinitis, hives, eczema, asthma or other Vital Signs Vital Signs Vital Signs: 05/17/21 23:07 05/17/21 23:11 Temperature 98.4 F Temperature Source Temporal Pulse Rate 90 Respiratory Rate 16 Respiratory Effort Normal Respiratory Depth Normal Respiratory Pattern Normal Blood Pressure 132/73 H Blood Pressure Mean 92 Pulse Ox 93 93 Oxygen Delivery Method Room Air Room Air Weight Weight: 78.7 kg Body Mass Index (BMI) 28.8 Physical Exam Narrative Physical exam: General: Well-nourished, well-developed. Head: Normocephalic, atraumatic, no tenderness Eyes: PERRLA, EOMI ENT, no trauma, moist mucous membranes, no rhinorrhea Neck: Nontender, full range of motion, no spinal tenderness, deformities, step- off CVS: Regular rate and rhythm. S1-S2 present. No murmur, gallop or rub. Respiratory : clear to auscultation bilaterally, chest wall nontender, no wheezing Abdomen: Soft, nontender, nondistended, normal bowel sounds, no masses : Deferred Back: Nontender, no CVA tenderness, no midline spinal tenderness, deformities, step-offs Extremities: Nontender full range of motion, no trauma Skin: Normal color, no trauma, abrasions Neuro: Alert, oriented, cranial nerves II through XII grossly intact. Psychiatry: Normal mood. Normal affect. Not depressed. Not anxious. Results Lab / Micro Data Result Diagrams: 05/17/21 23:50 05/17/21 23:50 Labs: Laboratory Results - last 24 hr 05/17/21 23:50: WBC 14.3 H, RBC 4.18 L, Hgb 12.6, Hct 38.2, MCV 91.4, MCH 30.1, MCHC 33.0, RDW Std Deviation 39.6, RDW Coeff of Pedro 11.8, Plt Count 354, MPV 8.5, Immature Gran % (Auto) 1.700 H, Neut % (Auto) 76.3 H, Lymph % (Auto) 11.2 L , Owen % (Auto) 10.0, Eos % (Auto) 0.5, Baso % (Auto) 0.3, Absolute Neuts (auto) 10.9 H, Absolute Lymphs (auto) 1.60, Nucleated RBC % 0 05/17/21 23:50: Sodium 135 L, Potassium 3.6, Chloride 99, Carbon Dioxide 27.0, Anion Gap 9, BUN 18, Creatinine 1.30 H, Estim Creat Clear Calc 28.47, Est GFR (MDRD) Af Amer 50 L, Est GFR (MDRD) Non-Af 41 L, BUN/Creatinine Ratio 13.8, Glucose 119 H, Calcium 9.0 Assessment & Plan Assessment/Plan (1) Closed right hip fracture: QUALIFIERS: Encounter type: initial encounter Qualified Code(s): S72.001A - Fracture of unspecified part of neck of right femur, initial encounter for closed fracture (2) Vertigo: PLAN: Acute right subcapital femoral neck fracture. Radiologist impression of hip and pelvis x-ray: Acute right subcapital femoral neck fracture. Actual hip and pelvis x-ray image was independently interpreted and I agree with radiologist interpretation Emergent department doctor discussed the case with Dr. Rodriguez, orthopedic surgeon. Inpatient consult for orthopedic surgery. Morphine IV as needed ordered. Bowel protocol and antiemetics IV ordered. Keep n.p.o except meds While n.p.o. lactated Ringer's ordered. Check vitamin D level. Patient is hypoxic with pneumonia and has hyperlipidemias as well as h ypertension on blood pressure medication. ACS NSQIP surgical risk calculator with mildly above surgical cardiac complications. Benefits of surgery may outweigh risk. Hold Plavix with patient being a surgical candidate. Acute hypoxemic respiratory failure secondary to pneumonia. While inpatient room at emergent department patient was in saturation was around 88% on room air. With 2 L high oxygen saturation is about 94%. Continue supplemental oxygen supplementation to maintain saturation of at least 90%. Radiologist impression of chest CTA done on 05/14/2021: Negative CTA Chest. Bibasilar airspace disease suspicious for pneumonia including atypical or viral pneumonia. Actual chest CT image was independently interpreted and I agree with radiologist interpretation. Review of labs showed that comprehensive respiratory panel 05/14/2021 was negative. Covid PCR on 05/14/2021 was negative. Leukocytosis with white count of 14.3. Noted bandemia. Trend CBC. Continue home doxycycline. Change Levaquin to every 48 hours based on creatinine clearance. Vertigo Change as needed meclizine to as needed. Zofran and Compazine ordered as needed. Brain aneurysm Hold Plavix as patient is a surgical candidate. DVT prophylaxis SCD ordered ordered. Charges/Coding Visit Charges Inpatient E&M: 61075 Init Hosp L3
[2021-05-18] MEDS: Meclizine HCl 25 MG Tablet PO ×3 (02:45→22:19)
[2021-05-18] MEDS: Morphine 2 MG/ML Syringe IV ×3 (05:08→12:03)
[2021-05-18] MEDS: Lactated Ringers 1,000 ML 60 ML IV ×3 (05:08→20:15)
[2021-05-18] MEDS: 0.9% Saline Lock 10 ML Syringe IV ×4 (05:13→13:55)
[2021-05-18] MEDS: Levothyroxine 50 MCG Tablet PO (05:14)
--- NOTE | 2021-05-18 05:55 | EKG12_ITS ---
Test Reason : PRE OP Blood Pressure : / mmHG Vent. Rate : 067 BPM Atrial Rate : 067 BPM P-R Int : 166 ms QRS Dur : 082 ms QT Int : 432 ms P-R-T Axes : 047 -30 -02 degrees QTc Int : 456 ms Normal sinus rhythm Left axis deviation Abnormal ECG When compared with ECG of 14-MAY-2021 16:13, No significant change was found Confirmed by ALEXY ALANIS, ROMAN ([id number]), supervising editor news reel JULIA DIEGO ([id number]) on 05/18/2021 2:14:35 PM Referred By: MARLENE Confirmed By:ROMAN TRACEY MD
[2021-05-18] MEDS: Acetaminophen 325 MG Tablet 650 MG PO (06:43)
--- NOTE | 2021-05-18 07:00 | PCS.PANDOC ---
PANDEMIC DOCUMENTATION INITIATED: Date: 04/17/2021 Time: 190
--- NOTE | 2021-05-18 11:40 | CASEMGMT ---
RN CM Face to Face with patient for initial transition planning/care coordination assessment. RN CM introduced self and role at [facility]. Patient lying in bed, alert and oriented, daughter at bedside. Patient willing to participate in assessment and is able to answer all questions appropriately. Care providers, pharmacy, and demographics verified. Patient wishes to discharge home with HHC if able or TCU. SW updated regarding potential placement at discharge. Patient states she has no further needs or concerns at this time. CM to follow for discharge planning needs that may arise. PCP: [facility] in [place], daughter to establish with [facility] Specialists: none Preferred Pharmacy: [facility] Insurance: flatev [facility] Prescription Benefit: yes Living Will/HPOA: yes, daughter Erika Baumann LNOK: daughter Living Arrangements: Patient lives with daughter in a single story home with 2 steps to enter. Patient was independent at home. Transportation: daughter DME/HHC: Patient has raised toilet and grab bars at home. Will monitor for walker and progress with therapy for discharge disposition. Disposition Plan: HHC vs SNF. Kendra RHOADES, RN, CM
[2021-05-18] MEDS: amLODIPine 5 MG Tablet PO (13:39)
--- NOTE | 2021-05-18 13:42 | CASEMGMT ---
RN ABIGAIL said patient would like to go to TCU if possible. SW put patient on the TCU list. They may have a bed for patient, but will know more tomorrow. It also depends on when patient is ready. SW spoke with patient and her daughter letting them know above. SW provided patient and her daughter were with a list of SNF providers including quality and resource use data and consistent with the patient?s preferred geographic region, medical needs, and insurance network. SW asked them to pick a couple of other facilities in case TCU does not work out. They thanked [facility]. Plan: TCU vs another SNF. Pattie Mcclure [facility]
[2021-05-18] MEDS: Ondansetron 4 MG/2 ML Vial IV (13:54)
--- NOTE | 2021-05-18 14:06 | PCM.PROGNOTE ---
Documented by User: Yvonne Ron NP-C 05/18/21 14:17 Subjective Subjective Patient seen and examined. Patient denies pain. Patient states she does not currently feel dizzy nor does patient complain of nausea or vomiting. Objective Data Objective Data Vital Signs: Vital Signs Temp Pulse Resp BP Pulse Ox 98.3 F 68 18 155/78 H 96 05/18/21 10:06 05/18/21 10:06 05/18/21 10:06 05/18/21 10:06 05/18/21 10:06 Oxygen Flow Rate (L/min) 2 Oxygen Delivery Method Room Air Weight: 151 lb Body Mass Index (BMI) 25.1 Intake & Output: Intake and Output for Last 24 Hours 05/16/21 05/17/21 05/18/21 23:59 23:59 23:59 Intake Total 502 / 502 Output Total 0 / 0 Balance 502 / 502 Lab / Micro Data Result Diagrams: 05/17/21 23:50 05/17/21 23:50 Labs: Laboratory Results - last 24 hr 05/17/21 23:50: WBC 14.3 H, RBC 4.18 L, Hgb 12.6, Hct 38.2, MCV 91.4, MCH 30.1, MCHC 33.0, RDW Std Deviation 39.6, RDW Coeff of Pedro 11.8, Plt Count 354, MPV 8.5, Immature Gran % (Auto) 1.700 H, Neut % (Auto) 76.3 H, Lymph % (Auto) 11.2 L, Gilchrist % (Auto) 10.0, Eos % (Auto) 0.5, Baso % (Auto) 0.3, Absolute Neuts (auto) 10.9 H, Absolute Lymphs (auto) 1.60, Nucleated RBC % 0 05/17/21 23:50: Sodium 135 L, Potassium 3.6, Chloride 99, Carbon Dioxide 27.0, Anion Gap 9, BUN 18, Creatinine 1.30 H, Estim Creat Clear Calc 28.47, Est GFR (MDRD) Af Amer 50 L, Est GFR (MDRD) Non-Af 41 L, BUN/Creatinine Ratio 13.8, Glucose 119 H, Calcium 9.0 05/18/21 07:30: Blood Type A POSITIVE, Antibody Screen NEGATIVE Radiography Diagnostic Testing: Radiology Impression Hip/Pelvis X-Ray 05/17/21 00:00 IMPRESSION: Acute right subcapital femoral neck fracture. Left hip arthroplasty. Electronically Signed: Cary Denton MD at 1:41 EDT Tel , Service support , Physical Exam Const oriented x3 and no apparent distress General Appearance: cooperative Orientation / Consciousness: lethargic HEENT normocephalic and head/scalp atraumatic Eyes conjunctivae normal and no scleral icterus Neck supple and no JVD General: trachea midline Resp normal respiratory effort, normal air movement and clear to auscultation bilaterally Cardio regular rate, regular rhythm, S1 normal heart sound and S2 normal heart sound Peripheral Pulses: pulses 2+ throughout GI normal to inspection, nondistended, normoactive bowel sounds, soft to palpation and non-tender Extremity no clubbing, cyanosis or edema Peripheral Pulses: Yes pulses 2+ throughout Right Lower Extremity: hip joint inspection, palpation (Tender), ROM (Decreased) and neurovascular exam (Intact) Skin General Skin Exam: no breakdown and turgor normal Lesions: no lesions Rashes: no rashes Neuro no focal motor deficits and no sensory deficits noted Speech: speech normal Motor Exam: general weakness Psych thought process normal, cooperative and affect normal Appearance: appropriate Assessment & Plan Assessment/Plan (1) Closed subcapital fracture of neck of right femur: QUALIFIERS: Encounter type: initial encounter Qualified Code(s): S72.011A - Unspecified intracapsular fracture of right femur, initial encounter for closed fracture (2) Pneumonia: QUALIFIERS: Pneumonia type: due to unspecified organism PLAN: 1. Closed right hip fracture -Orthopedic surgeon consulted, case discussed yesterday with Scheduled by ER physician -Pain medication regimen ordered -N.p.o. for pending surgery evaluation -Continue LR -NSQIP surgical risk calculator mildly above average surgical cardiac complications 2. Acute hypoxic respiratory failure secondary to pneumonia -Continue supplemental oxygen as needed to keep oxygen saturations greater than 90% -Patiently on 2 L overnight however patient currently on room air oxygen saturations stable -Will continue home doxycycline and Levaquin. -White blood cell count improved, daily CBC ordered 3. Vertigo -Continue as needed meclizine as well as as needed Zofran and Compazine -Currently patient is asymptomatic Continue home medication regimen related to chronic diseases including overactive bladder, hypertension, hyperlipidemia and hypothyroidism. DVT prophylaxis-SCDs This patient was seen by Yvonne Ron NP-C under the supervision of Dr. Zhou. Documented by User: Dr. Gustavo Zhou MD 05/18/21 17:36 Subjective Subjective Patient pain is well controlled. Patient has history of pneumonia. I talked to the patient's daughter and she had cough with productive yellow sputum, shortness of breath on exertion and is on antibiotic for bilateral pneumonia. She felt mild dizzy and fell on the right side and admitted with right hip fracture. Currently she is not dizzy. Objective Data Lab / Micro Data Result Diagrams: 05/17/21 23:50 05/17/21 23:50 Physical Exam Narrative General: Alert, Oriented x3, Cooperative HEENT: Atraumatic, PERRLA, EOMI, Normocephalic Oral: No Gingival or Mucosal Lesions/ Ulcerations Neck: Supple, No JVD, Negative Carotid Bruits Lungs: Air entry diminished in bilateral lung bases. No crepitations/rhonchi. Cardiovascular: Sinus rhythm, Normal S1, Normal S2, No murmurs Abdomen: Bowel Sounds Present, Soft, Non Tender, Non-Distended : No renal angle tenderness. No suprapubic tenderness. Extremities: No edema, Capillary Refill Less than 3 Seconds Skin: No rashes, No breakdown Musculoskeletal: Tenderness of right hip. Right hip externally rotated. Neurological: Cranial nerves II-XII grossly intact, DTR 2+/4 and Symmetrical, Neuro grossly intact Psych/Mental Status: Normal Affect, Appropriate. Assessment & Plan Assessment/Plan (1) Pneumonia: QUALIFIERS: Pneumonia type: due to unspecified organism (2) Closed left hip fracture: QUALIFIERS: Encounter type: initial encounter Qualified Code(s): S72.002A - Fracture of unspecified part of neck of left femur, initial encounter for closed fracture PLAN: This patient was seen in conjunction with SUDARSHAN Russell. I have independently interviewed and examined the patient and reviewed pertinent history, examination findings, laboratory and plan of management. I have reviewed the note and agree with the documented findings with the few additional points. In brief, patient is admitted for acute right septated femoral neck fracture, pathological as fracture happened after fall from standing height. Pain control. PT and OT. NSQIP surgical risk shows mildly elevated risk above average for cardiac complications. Plavix on hold. Surgeon Dr. Rodriguez consulted. Patient also sample purposelessly secondary to bilateral pneumonia. Patient has leukocytosis, improving. Symptoms of pneumonia cough and shortness of breath better. Patient on Levaquin. Discontinue doxycycline as it covers atypicals. Recent chest CT on 05/14 shows bibasilar airspace disease suspicious for pneumonia. Negative for PE. I have discussed my assessment with SUDARSHAN Russell and orders have been reviewed. Plan of management and expected hospital course discussed with the patient's daughter near the bedside. Clinical Impression(s) from Imaging Studies Hip/Pelvis X-Ray 05/17/21 00:00
--- NOTE | 2021-05-18 16:03 | CHAPLAIN ---
Type of Pastoral Visit _x__ Initial Visit ___ Follow-up Visit ___ On-call Visit ___ General Patient Visit ___ Spiritual Assessment ___ Family Conference ___ Bereavement ___ Rapid Response ___ Code Blue ___ Other (describe below) Pastoral Care Referral From _x__ Patient ___ Family ___ Nurse ___ Physician ___ [employer] Promotional Sales ___ Motors Assembler ___ Other (describe below) Sacrament/Intervention _x__ Active listening ___ Anointing ___ Mosque ___ Bereavement ___ Communion _x__ Shereen exploration ___ _x__ Life review _x__ Prayer ___ Reconciliation ___ Sacrament of Sick _x__ Supportive presence ___ Wedding ___ Other (describe below) Pastoral Comments met with patient and daughter just prior to surgery; pt displays shereen in God and has some humor for the occasion; upon conversing with pt it is discovered that she is recently after 68 years of marriage; pt speaks of her confidence to 'get through' with the help of God and her memories over good life; prayer welcomed
[2021-05-18] MEDS: Cefazolin 2 GM in 0.9% Normal Saline 100 ML IV (18:44)
--- NOTE | 2021-05-18 18:44 | CONS.ORTHO ---
HPI Consult Data Date of Consult: 05/18/21 HPI Narrative HPI Narrative: CHICHI WYNNE, is a 85 F who presents after a fall at home yesterday 05/17/2021. Patient states she had some lightheadedness and dizziness which she has been dealing with for several years. She states she been told she has vertigo. She fell on her right side and sustained a right displaced femoral neck fracture. She was seen in [facility] emergency department where x-rays confirmed the injury. She was admitted under the care of the hospitalist and I was consulted. Of note, patient did have a similar fracture on the left side underwent left hip hemiarthroplasty approximately 1 year ago and did well with the procedure. Patient is a community ambulator without assistive device. Denies any antecedent hip pain. Review of systems: 10 point review of systems obtained, negative unless otherwise noted in HPI. [facility] Medical History (Updated 05/18/21 @ 17:[address] Gustavo Zhou MD) Brain aneurysm Hypothyroidism Non-smoker Stage 3 chronic kidney disease Vertigo Home Medications amlodipine 5 mg PO DAILY PRN 05/20/20 [History Last Taken Unknown] atorvastatin 40 mg PO QHS 05/20/20 [History Last Taken Unknown] levothyroxine 50 mcg PO DAILY 05/20/20 [History Last Taken Unknown] acetaminophen 1,000 mg PO Q6H PRN tab 05/24/20 [Rx Last Taken Unknown] benzonatate 200 mg PO TID PRN #20 cap 05/14/21 [Rx Last Taken Unknown] cetirizine 10 mg PO DAILY PRN 05/14/21 [History Last Taken Unknown] clopidogrel 75 mg PO DAILY 05/14/21 [History Last Taken Unknown] doxycycline hyclate 100 mg PO BID 05/14/21 [History Last Taken Unknown] levofloxacin 750 mg PO DAILY #5 tab 05/14/21 [Rx Last Taken Unknown] meclizine 25 mg PO TID PRN 05/14/21 [History Last Taken Unknown] mirabegron [Myrbetriq] 25 mg PO DAILY 05/14/21 [History Last Taken Unknown] Allergy/AdvReac Type Severity Reaction Status Date / Time aspirin [ASA] Allergy Anaphylaxis Verified 05/17/21 23:11 Family History Other Cancer Peptic ulcer disease Surgical History History of hip replacement Social History Smoking Status: Never smoker Vital Signs Vital Signs Vital Signs: 05/17/21 23:07 05/17/21 23:11 05/18/21 01:06 Temperature 98.4 F Temperature Source Temporal Pulse Rate 90 80 Respiratory Rate 16 14 Respiratory Effort Normal Respiratory Depth Normal Respiratory Pattern Normal Blood Pressure 132/73 H 172/98 H Blood Pressure Mean 92 122 Blood Pressure Source Blood Pressure Position Blood Pressure Location Pulse Ox 93 93 92 Oxygen Delivery Method Room Air Room Air Room Air Oxygen Flow Rate (L/min) 05/18/21 01:09 05/18/21 01:28 05/18/21 02:10 Temperature 98.4 F Temperature Source Temporal Pulse Rate 90 83 Respiratory Rate 19 H 17 Respiratory Effort Normal Respiratory Depth Respiratory Pattern Blood Pressure 172/98 H 172/98 H Blood Pressure Mean 122 122 Blood Pressure Source Blood Pressure Position Blood Pressure Location Pulse Ox 93 93 Oxygen Delivery Method Room Air Room Air Nasal Cannula Oxygen Flow Rate (L/min) 2 05/18/21 02:19 05/18/21 04:05 05/18/21 04:19 Temperature 97.6 F L Temperature Source Oral Pulse Rate 78 73 Respiratory Rate 16 Respiratory Effort Respiratory Depth Respiratory Pattern Blood Pressure 165/81 H Blood Pressure Mean 109 Blood Pressure Source Monitor Blood Pressure Position Semi-Fowlers Blood Pressure Location Right Arm Pulse Ox 94 94 Oxygen Delivery Method Nasal Cannula Nasal Cannula Oxygen Flow Rate (L/min) 2 2 05/18/21 06:50 05/18/21 07:01 05/18/21 08:10 Temperature 98.0 F Temperature Source Oral Pulse Rate 71 66 Respiratory Rate 18 Respiratory Effort Normal Non-Labored Respiratory Depth Normal Respiratory Pattern Normal Blood Pressure 173/85 H Blood Pressure Mean 114 Blood Pressure Source Monitor Blood Pressure Position Semi-Fowlers Blood Pressure Location Right Arm Pulse Ox 97 Oxygen Delivery Method Nasal Cannula Nasal Cannula Oxygen Flow Rate (L/min) 2 2 05/18/21 10:06 05/18/21 14:00 05/18/21 15:02 Temperature 98.3 F Temperature Source Oral Pulse Rate 68 78 Respiratory Rate 18 Respiratory Effort Normal Non-Labored Respiratory Depth Normal Respiratory Pattern Normal Blood Pressure 155/78 H Blood Pressure Mean 103 Blood Pressure Source Monitor Blood Pressure Position Semi-Fowlers Blood Pressure Location Right Arm Pulse Ox 96 Oxygen Delivery Method Room Air Room Air Oxygen Flow Rate (L/min) 05/18/21 16:00 Temperature 97.7 F L Temperature Source Oral Pulse Rate 73 Respiratory Rate 16 Respiratory Effort Respiratory Depth Respiratory Pattern Blood Pressure 159/84 H Blood Pressure Mean 109 Blood Pressure Source Monitor Blood Pressure Position Semi-Fowlers Blood Pressure Location Left Arm Pulse Ox 93 Oxygen Delivery Method Room Air Oxygen Flow Rate (L/min) Weight Weight: 151 lb Body Mass Index (BMI) 25.1 Physical Exam Narrative General -A&Ox3, NAD, appears stated age. Vital signs stable, afebrile. Respiratory -normal work of breathing, no intercostal retractions. CV -pulses regular, brisk capillary refill ?4 limbs. Abdomen-soft, nontender, nondistended. No guarding, rigidity, rebound tenderness. Musculoskeletal/neurologic -full range of motion nontender throughout bilateral upper extremities, left lower extremity with full sensation and strength in all dermatomes and myotomes. No midline cervical tenderness. Right lower extremity-no obvious deformity. Pain with logroll of the right lower extremity. Nontender throughout the right knee femoral shaft, tibial shaft and left foot/ankle. Brisk capillary refill. Sensation intact light touch L3-S1 dermatomes. DF, PF, EHL intact. DP, PT 2+. Pelvis is stable, nontender. Skin is intact without lacerations, abrasions. No ecchymosis noted. Lab / Micro Data Result Diagrams: 05/17/21 23:50 05/17/21 23:50 Labs: Laboratory Results - last 24 hr 05/17/21 23:50: WBC 14.3 H, RBC 4.18 L, Hgb 12.6, Hct 38.2, MCV 91.4, MCH 30.1, MCHC 33.0, RDW Std Deviation 39.6, RDW Coeff of Pedro 11.8, Plt Count 354, MPV 8.5, Immature Gran % (Auto) 1.700 H, Neut % (Auto) 76.3 H, Lymph % (Auto) 11.2 L, [place] % (Auto) 10.0, Eos % (Auto) 0.5, Baso % (Auto) 0.3, Absolute Neuts (auto) 10.9 H, Absolute Lymphs (auto) 1.60, Nucleated RBC % 0 05/17/21 23:50: Sodium 135 L, Potassium 3.6, Chloride 99, Carbon Dioxide 27.0, Anion Gap 9, BUN 18, Creatinine 1.30 H, Estim Creat Clear Calc 28.47, Est GFR (MDRD) Af Amer 50 L, Est GFR (MDRD) Non-Af 41 L, BUN/Creatinine Ratio 13.8, Glucose 119 H, Calcium 9.0 05/18/21 07:30: Blood Type A POSITIVE, Antibody Screen NEGATIVE Radiology Impression Hip/Pelvis X-Ray 05/17/21 00:00 IMPRESSION: Acute right subcapital femoral neck fracture. Left hip arthroplasty. Electronically Signed: Cary Denton MD at 1:41 EDT Tel , Service support , Assessment & Plan Assessment/Plan (1) Closed subcapital fracture of neck of right femur: QUALIFIERS: Encounter type: initial encounter Qualified Code(s): S72.011A - Unspecified intracapsular fracture of right femur, initial encounter for closed fracture PLAN: Patient has a displaced right femoral neck fracture, closed and neurovascularly intact. I recommended operative mention of the form of right hip hemiarthroplasty. The risks, benefits, alternatives to procedure were reviewed with the patient. She wished to proceed with surgery. All questions answered. Informed consent obtained. Blood consent obtained. 2 jacob Ramirez on-call to the OR. N.p.o. Further recommendations pending surgery.
--- NOTE | 2021-05-18 21:24 | RAD_ITS ---
STUDY: X-RAY - PELVIS REASON FOR EXAM: Female, 85 years old. Post-op right hip arthroplasty TECHNIQUE: One view of the pelvis was obtained. COMPARISON: None. FINDINGS: There is no fracture or dislocation. There is anatomic alignment. The soft tissue planes are preserved. Total hip arthroplasty. Skin felecia are seen along the anterior lateral aspect of the hip. There is an air-fluid level seen in the operative site. Joint space is preserved. Subcutaneous air is noted. IMPRESSION: Successful total hip arthroplasty. Electronically Signed: Papo Bender MD at 8:52 EDT , Service support , RAD/Pelvis 1 or 2 Views
--- NOTE | 2021-05-18 21:30 | PCM.OPRPT ---
Problems Associated Problem List Diagnoses (1) Closed subcapital fracture of neck of right femur: Report of Operation Date of Procedure: 05/18/21 Description of Surgical Findings:: Preoperative diagnosis: Right displaced femoral neck fracture Postoperative diagnosis: Right displaced femoral neck fracture Procedure: Right hip hemiarthroplasty Surgeon: Luis Fernando Rodriguez DO Small Kick Press Operator: KELSEY Cervantes Anesthesia: General endotracheal Anesthesiologist: Dr. Wells Complications: None Drains: None Estimated blood loss: [] cc Urinary output: [] cc IV fluids: [] cc crystalloid Specimens: None Surgical implants: Iron Belt Accolade two 127 degree neck angle hip stem size #7, Unitrax neck adjustment sleeve standard, Unitrax endoprosthesis head component outer diameter 51 mm Indications: This is an 85-year-old female who sustained a ground-level fall after an episode of vertigo yesterday 05/17/2021. She landed on her right side. She was brought to [facility] where x-rays revealed a displaced right femoral neck fracture. She was admitted under the service of the hospitalist. I was consulted to see the patient for surgical recommendations. I recommended a right hip hemiarthroplasty due to the pattern and displacement. I reviewed the procedure with the patient, its risk, benefits, alternatives. Risks included but were not limited to bleeding, infection, loss of life or limb, risk of anesthesia, neurovascular injury, persistent pain, instability, need for additional surgery, failure of orthopedic hardware, loosening, osteolysis, need for assistive devices long-term. Patient expressed understanding wish to proceed with surgery. Description of procedure: Prior to the procedure, patient was brought to the preoperative holding area where patient was identified by name, medical record number and date of . I confirmed the side, site, operation to be performed with the patient. Informed consent was confirmed, All questions were answered to patient satisfaction. The operative extremity was marked. She was also seen by anesthesia staff and anesthesia consent obtained.At time of the operative procedure, pt was brought to the operative suite. General anesthesia was induced on the hospital bed and endotracheal tube placed. After adequate anesthesia, patient was transferred to a standard operating table. She was then positioned in the lateral decubitus position with the right side up and held in position by MirDeneg hip positioner system. All bony prominences were well-padded. A axillary roll was placed under the patient's left axilla. Peroneal nerve was free with a blanket on the nonoperative extremity. Leg lengths were reproduced from patient's position when she was supine. The right lower extremity was then prepped and draped in normal, sterile orthopedic fashion. We performed a timeout with all parties in attendance in agreement with the side, site, and operation to be performed. No concerns were voiced and would like to proceed. I first marked an incision along the lateral aspect of the hip centered over the greater trochanteric tip. In standard posterior approach, a curvilinear incision was made above the trochanter. An approximately 15 cm incision was made. Skin was sharply incised with a 10 blade scalpel carried deep through subcutaneous layers to the level of the IT band. Gelpi retractors were then placed. A Wu was used to expose the IT band. Bovie cautery was then used for hemostasis and then to open the IT band. This was opened in line with the incision. A Charnley retractor was then placed. Sciatic nerve is free. The trochanteric bursa was then debrided. This identified the short external rotators after internal rotation of the hip. The fracture site was easily identified at this point. Short external rotators were taken down and tagged for later repair. Hip capsule was also tagged for repair with a stay suture. We then freshened the neck cut with a sagittal saw. Anterior and posterior acetabular retractors were placed to gain access to the femoral head. A corkscrew was used to remove the head. Any remaining debris was debrided from the acetabulum. We then placed the femoral head on the back table for measurement. We did use trial heads and selected a final size 51 with good suction fit. Box chisel was then utilized to gain access to the femoral canal. Canal finder was placed. Sequential broaches were used and press-fit manner. A final size 7 achieved excellent vertical and rotational stability. We then trialed with a standard and subsequently high offset stem. I offset did achieve excellent stability and reproduction of abductor tension. Leg lengths appeared appropriate with a size 0 neck length. Trials were then removed. We copiously irrigated the wound with normal saline solution and irrisept solution. A size 7 stem was then impacted with excellent fixation. Final head was then impacted over the Rodriguez taper neck. Final reduction was performed. A posterior capsular repair was performed with #2 Ethibond suture. IT band was closed watertight with #1 Vicryl suture. Deeper fascial layers were closed with 0 Vicryl suture in interrupted fashion. Subcutaneous layers were reapproximated with 2-0 Vicryl suture and skin reapproximated with skin felecia. A silver dressing was applied. Patient tolerated procedure well without complication. She was positioned back in the supine position on her hospital bed and subsequently extubated safely. She was transferred to PACU in stable condition. An abduction pillow was placed between the patient's leg to be worn while she is in bed. Post Operative Plan: Weightbearing: Weightbearing as tolerated right lower extremity, posterior hip precautions. Abduction pillow while in bed Antibiotics: Ancef 1 g every 8 hours x 3 doses DVT Prophylaxis: Restart Plavix tomorrow 05/19/2021 [place]: None Dressing: Maintain silver dressing x7 days X-Rays: PACU x-rays were reviewed demonstrated well-positioned right hip hemiarthroplasty implant. Follow-up 2-week x-rays in the office. Follow-up: 2 weeks in my office for staple removal
[2021-05-18] MEDS: Atorvastatin Calcium 40 MG Tablet PO (22:19)
[2021-05-18] MEDS: Doxycycline 100 MG CAPSULE PO (22:19)
[2021-05-18] MEDS: MELATONIN 3 MG TABLET PO (22:24)
[2021-05-19] VITALS (9 sets, daily range): BP systolic 99–110; BP diastolic 62–77; PULSE 81–93; RESP 15–20; TEMP 36.3–36.8; O2SAT 93–94
[2021-05-19] MEDS: Cefazolin 1 GM/50 ML BAG IV ×2 (02:34→09:49)
[2021-05-19 05:20] LABS: Absolute Lymphocyte Count 1.24 X10^3/uL (0.83-4.51); Absolute Neutrophil Count 20.2 X10^3/uL (2.0-7.7); Basophil# 0.05 X10^3/uL; Basophil% 0.2 % (0-1); Eosinophil# 0.01 X10^3/uL; Hematocrit 28.7 % (37-47); Hemoglobin 9.8 g/dL (12.0-15.0); Lymphocyte # 1.24 X10^3/ul (0.83-4.51); Lymphocyte % 5.3 % (19-41); Mean Corp Hgb Conc 34.1 g/dL (32-36); Mean Corpuscular Hgb 30.6 pg (27.0-32.0); Mean Corpuscular Volume 89.7 fL (81-99); Mean Platelet Vol. 8.6 fl (6.2-12.0); Monocyte% 6.9 % (0-10); NRBC Flagged by Analyzer 0 % (0-5); Neutrophil # 20.17 X10^3/uL (2.7-7.7); Neutrophil % 86.8 % (47-70); POSITIVE DIFFERENTIAL YES; Platelet Count 289 K/mm3 (150-450); RBC Distribution Width CV 11.9 % (11.6-14.6); RBC Distribution Width SD 38.5 fl (35.1-43.9); White Blood Count 23.3 K/mm3 (4.4-11.0)
[2021-05-19 05:32] LABS: Differential Indicated SCAN CRITERIA MET
[2021-05-19] MEDS: Meclizine HCl 25 MG Tablet PO ×2 (05:40→13:15)
[2021-05-19] MEDS: levoFLOXacin 750 MG Tablet PO (05:40)
[2021-05-19] MEDS: Levothyroxine 50 MCG Tablet PO (05:40)
[2021-05-19 05:46] LABS: Anion Gap 8 (5-15); BUN 14 mg/dL (7-18); Chloride 98 mmol/L (98-107); Creatinine, Serum 0.93 mg/dL (0.55-1.02); EST Glomerular Filtration Rate 61 mL/min (>60); Est Glom Filt Rate - Afr Amer 73 mL/min (>60); Glucose 138 mg/dL (74-106); Potassium 3.8 mmol/L (3.5-5.1); Sodium Level 132 mmol/L (136-145)
[2021-05-19] MEDS: Ondansetron 4 MG/2 ML Vial IV (05:46)
[2021-05-19] MEDS: 0.9% Saline Lock 10 ML Syringe IV ×3 (05:46→15:16)
[2021-05-19] MEDS: Morphine 2 MG/ML Syringe IV ×3 (05:46→15:16)
[2021-05-19 05:54] LABS: Vitamin D,25 Hydroxy 54.3 ng/mL
[2021-05-19 06:36] LABS: Differential Comment SCANNED
--- NOTE | 2021-05-19 07:49 | PCM.PN.ORT ---
Subjective Subjective Patient seen and examined at bedside this morning. Denies significant pain. She states she is overall doing well. Denies any fevers, chills, nausea vomiting, chest pain or shortness of breath. Objective Data Objective Data Vital Signs: Vital Signs Temp Pulse Resp BP Pulse Ox 98.0 F 93 20 H 102/71 94 05/19/21 05:45 05/19/21 07:00 05/19/21 05:45 05/19/21 05:45 05/19/21 05:45 Oxygen Flow Rate (L/min) 2 Oxygen Delivery Method Nasal Cannula Weight: 151 lb Body Mass Index (BMI) 25.1 Intake & Output: Intake and Output for Last 24 Hours 05/17/21 05/18/21 05/19/21 23:59 23:59 23:59 Intake Total 1370 / 1370 170 / 170 Output Total 350 / 350 200 / 200 Balance 1020 / 1020 -30 / -30 Lab / Micro Data Result Diagrams: 05/19/21 04:54 05/19/21 04:54 Labs: Laboratory Results - last 24 hr 05/18/21 07:30: Blood Type A POSITIVE, Antibody Screen NEGATIVE 05/19/21 04:54: WBC 23.3 H, RBC 3.20 L, Hgb 9.8 L, Hct 28.7 L, MCV 89.7, MCH 30.6, MCHC 34.1, RDW Std Deviation 38.5, RDW Coeff of Pedro 11.9, Plt Count 289, MPV 8.6, Immature Gran % (Auto) 0.800, Neut % (Auto) 86.8 H, Lymph % (Auto) 5.3 L, [place] % (Auto) 6.9, Eos % (Auto) 0.0, Baso % (Auto) 0.2, Absolute Neuts (auto) 20.2 H, Absolute Lymphs (auto) 1.24, Nucleated RBC % 0, Differential Comment SCANNED, Diff Path Review December05/19/21 04:54: Sodium 132 L, Potassium 3.8, Chloride 98, Carbon Dioxide 26.0, Anion Gap 8, BUN 14, Creatinine 0.93, Estim Creat Clear Calc 39.80, Est GFR (MDRD) Af Amer 73, Est GFR (MDRD) Non-Af 61, BUN/Creatinine Ratio 15.0, Glucose 138 H, Calcium 8.0 L 09/17/21 04:54: Vitamin D 25-Hydroxy 54.3 Radiography Diagnostic Testing: Radiology Impression Hip/Pelvis X-Ray 05/17/21 00:00 IMPRESSION: Acute right subcapital femoral neck fracture. Left hip arthroplasty. Electronically Signed: Cary Denton MD at 1:41 EDT Tel , Service support , Physical Exam Narrative General - A&Ox3, NAD. VSS/AF Right lower extremity -incisional dressing C/D/I. Abduction pillow in place. SILT Sural, Saphenous, SPN, DPN, Tibial N. distributions. DP, PT 2+. BCR. DF, PF, EHL 5/5. No calf TTP. Assessment & Plan Assessment/Plan (1) Closed subcapital fracture of neck of right femur: QUALIFIERS: Encounter type: initial encounter Qualified Code(s): S72.011A - Unspecified intracapsular fracture of right femur, initial encounter for closed fracture PLAN: POD#1 s/p right hip hemiarthroplasty - Pain control - Medicine following for medical management - PT/OT - DVT PPX -plan to restart clopidogrel today, SCDs, teds -24 hours IV Ancef postop - Case management - D/C planning -Posterior precautions-no internal rotation, abduction pillow in bed, no crossing legs, no flexion greater than 90 degrees of the hip. Weightbearing as tolerated. -Patient stable from orthopedic standpoint. I will sign off at this time. Discharge instructions: Maintain posterior hip precautions. Follow-up in my office in 2 weeks for repeat x-rays and staple removal. Weightbearing as tolerated right lower extremity. Maintain surgical dressing x7 days, then okay to remove and leave open to air if no drainage. Patient is okay to shower with the dressing on starting on postoperative day #3. Thank you for allowing me to care for this patient. Please do not hesitate to call if any questions or concerns arise.
[2021-05-19] MEDS: Lactated Ringers 1,000 ML 60 ML IV (09:50)
[2021-05-19] MEDS: Doxycycline 100 MG CAPSULE PO (09:51)
[2021-05-19] MEDS: Mirabegron 25 MG TAB.ER.24H PO (09:51)
[2021-05-19] MEDS: Clopidogrel Bisulfate 75 MG Tablet PO (09:54)
--- NOTE | 2021-05-19 10:59 | PCM.TXEXTCAR ---
Diet 05/19/21 09:00 Diet: Regular - General Is pt able to select menu?: Yes Routine Orders/Code Status Enema Type: Fleetz Enema Frequency: Daily PRN Suppository Type: Dulcolax 10mg Suppository Frequency: Daily PRN O2 Frequency: PRN Routine Lab Work: CBC (1 week) Code Status: DNRCC-A (no intubation) Wound(s) right hip: Wound Type: Surgical Incision Suggestions for Active Care Change Position every (hours): 2 Hours to sit in a chair: 3 Times a day to sit in chair: 3 Therapies Weight Bearing: Weight bearing as tolerated (no internal roatation, abduction pilow in bed , no crossing legs, no flexion greater than 90 degrees ) Extremity Affected:: Right Lower Physical Therapy: Eval and Treat Occupational Therapy: Eval and Treat Problem/Diagnosis (1) Closed subcapital fracture of neck of right femur: Status: Acute Allergies/Procedures Done in Hospital Allergies aspirin [ASA] Allergy (Verified 05/17/21 23:11) Anaphylaxis Procedures: EKG Type of Care/Length of Stay Estimated LOS: Convalescent Care Less Than 30 days Type of Care Needed: Skilled Rehab Potential: Good Prognosis: Good Additional Orders/Day of Discharge Additional Orders: Maintain surgical dressing x7 days then ok for open to air. May shower on 05/21/2021 Day of Discharge: 05/19/21 Follow Up Care Please Follow Up With: Luis Fernando Rodriguez DO When: 2 weeks for xray and suture removal Discharge Plan Admission Admit Date/Time: 05/18/21 00:59 Primary Reason for Your Visit: Right hip fracture Attending Provider: Jonathan Apodaca Consulting Providers: Luis Fernando Rodriguez Discharge Orders/Prescriptions Prescriptions: New levofloxacin 750 mg Tablet 750 mg PO Q48@0600 Qty: 1 RF: 0 oxycodone 5 mg tablet 5 mg PO Q4H PRN (Reason: pain) 4 Days Qty: 24 RF: 0 Continued atorvastatin 40 MG tablet 40 mg PO QHS RF: 0 amlodipine 5 MG tablet 5 mg PO DAILY PRN (Reason: Hypertension) RF: 0 levothyroxine 50 MCG tablet 50 mcg PO DAILY RF: 0 acetaminophen 500 MG tablet 1,000 mg PO Q6H PRN (Reason: Pain Score 1-3/10) RF: 0 cetirizine 10 mg Tablet 10 mg PO DAILY PRN (Reason: Allergic Symptoms) RF: 0 clopidogrel 75 mg Tablet 75 mg PO DAILY RF: 0 meclizine 25 mg Tablet 25 mg PO TID PRN (Reason: Dizziness) RF: 0 doxycycline hyclate 100 mg Tablet 100 mg PO BID RF: 0 Myrbetriq 25 mg Tablet Extended Release 24 Hr 25 mg PO DAILY RF: 0 levofloxacin 750 mg tablet 750 mg PO DAILY Qty: 5 RF: 0 benzonatate 200 mg capsule 200 mg PO TID PRN (Reason: cough) Qty: 20 RF: 0 Referrals / Follow Up: TRA BARRAZA [Other] TRA BARRAZA [Other]
--- NOTE | 2021-05-19 11:05 | CASEMGMT ---
Patient will be going to [facility] today. SW notified Kelly in TCU as well as patient and her daughter. Plan: d/c to [facility] under skilled level of care. Pattie LU
--- NOTE | 2021-05-19 11:18 | DS.PCM_ITS ---
Documented by User: SULTANA Mayorga 05/19/21 11:26 Providers Date of Admission: 05/18/21 Primary Care Physician: TRA BARRAZA Consultations 05/18/21 01:50 Consult: Orthopedics Routine Consulting Provider: Luis Fernando Rodriguez Reason for Consult: R hip fracture EMERGENT Consult: No MD Notified: Yes Date Notified: 05/18/21 Time Notified: 02:45 Method of Notification: Verbal Method of Consult:: In-Person Comments:: notified by ED MD Reason For Visit: SUBCAITAL DISPLACED RIGHT FEMORAL NECK FRACTURE Diagnosis Discharge Diagnosis (1) Closed subcapital fracture of neck of right femur: Status: Acute Code(s): S72.011A - Unspecified intracapsular fracture of right femur, initial encounter for closed fracture Qualifiers: Encounter type: initial encounter Qualified Code(s): S72.011A - Unspecified intracapsular fracture of right femur, initial encounter for closed fracture Medications at Discharge Home Medications amlodipine 5 mg PO DAILY PRN 05/20/20 atorvastatin 40 mg PO QHS 05/20/20 levothyroxine 50 mcg PO DAILY 05/20/20 acetaminophen 1,000 mg PO Q6H PRN tab 05/24/20 Myrbetriq 25 mg PO DAILY 05/14/21 benzonatate 200 mg PO TID PRN #20 cap 05/14/21 cetirizine 10 mg PO DAILY PRN 05/14/21 clopidogrel 75 mg PO DAILY 05/14/21 doxycycline hyclate 100 mg PO BID 05/14/21 meclizine 25 mg PO TID PRN 05/14/21 levofloxacin 750 mg PO Q48@0600 05/19/21 oxycodone 5 mg PO Q4H PRN 4 Days #24 tab 05/19/21 Hospital Course Operations total hip replacement Procedures EKG Summary of Care Provided Minutes Spent on Discharge: 35 Hospital Course: Patient is an 85-year-old female who presented to ER following a fall at home with subsequent right hip pain. Patient has a history of vertigo and states that when she woke up she attempted to ambulate to close her bedroom door at which time she fell landing on her right side. Hip and pelvis x-ray dem onstrates acute right subcapital femoral neck fracture. Patient underwent right hip hemiarthroplasty on 05/18/[address] Rodriguez, surgery was without complications. Labs reviewed, white blood cell count noted to be elevated however this is likely secondary to surgical intervention less than 12 hours ago. Otherwise patient labs and vital signs stable. Will discharge patient to TCU with order for CBC follow-up as well as follow-up and discharge instructions for Dr. Rodriguez. Physical Exam Const oriented x3 and no apparent distress General Appearance: cooperative Orientation / Consciousness: lethargic HEENT normocephalic and head/scalp atraumatic Eyes conjunctivae normal and no scleral icterus Neck supple and no JVD General: trachea midline Resp normal respiratory effort, normal air movement and clear to auscultation bilaterally Cardio regular rate, regular rhythm, S1 normal heart sound and S2 normal heart sound Peripheral Pulses: pulses 2+ throughout GI normal to inspection, nondistended, normoactive bowel sounds, soft to palpation and non-tender Extremity no clubbing, cyanosis or edema Right Lower Extremity: hip joint inspection, palpation (Tender), ROM (Decreased) and neurovascular exam (Intact) Skin General Skin Exam: no breakdown and turgor normal Lesions: no lesions Rashes: no rashes Neuro no focal motor deficits and no sensory deficits noted Speech: speech normal Motor Exam: general weakness Psych thought process normal, cooperative and affect normal Appearance: appropriate Weight / BMI Weight Weight: 151 lb Body Mass Index (BMI) 25.1 ABG / Lab / Microbiology Data Result Diagrams: 05/19/21 04:54 05/19/21 04:54 Laboratory: Laboratory Results - last 24 hr 05/19/21 04:54: WBC 23.3 H, RBC 3.20 L, Hgb 9.8 L, Hct 28.7 L, MCV 89.7, MCH 30.6, MCHC 34.1, RDW Std Deviation 38.5, RDW Coeff of Pedro 11.9, Plt Count 289, MPV 8.6, Immature Gran % (Auto) 0.800, Neut % (Auto) 86.8 H, Lymph % (Auto) 5.3 L, Smyth % (Auto) 6.9, Eos % (Auto) 0.0, Baso % (Auto) 0.2, Absolute Neuts (auto) 20.2 H, Absolute Lymphs (auto) 1.24, Nucleated RBC % 0, Differential Comment SCANNED, Diff Path Review December05/19/21 04:54: Sodium 132 L, Potassium 3.8, Chloride 98, Carbon Dioxide 26.0, Anion Gap 8, BUN 14, Creatinine 0.93, Estim Creat Clear Calc 39.80, Est GFR (MDRD) Af Amer 73, Est GFR (MDRD) Non-Af 61, BUN/Creatinine Ratio 15.0, Glucose 138 H, Calcium 8.0 L 05/19/21 04:54: Vitamin D 25-Hydroxy 54.3 Radiography Diagnostic Testing: Radiology Impression Hip/Pelvis X-Ray 05/17/21 00:00 IMPRESSION: Acute right subcapital femoral neck fracture. Left hip arthroplasty. Electronically Signed: Cary Denton MD at 1:41 EDT Tel , Service support , Pelvis X-Ray 05/18/21 21:24 D/C Instructions Discharge Diet: No restrictions Discharge Activity: May Shower (05/21/21) Weight Bearing Status: Weight bearing as tolerated Keep extremity elevated above heart level: Operative Extremity and Right Leg Call your doctor if your incision/area has: Continuous Slow Oozing, Sudden Increased Bleeding and Increased Pain/ Swelling Call your doctor if you observe: Fever of 101 or Higher, Coldness, Increased Pain and Numbness or Tingling Remove Dressing in: 1 week Please Follow Up With: Luis Fernando Rodriguez DO When: 2 weeks Meaningful Use Info Meaningful Use Diagnoses (Choose all that apply): None applicable Discharge Plan Admission Admit Date/Time: 05/18/21 00:59 Primary Reason for Your Visit: Right hip fracture Attending Provider: Jonathan Apodaca Consulting Providers: Luis Fernando Rodriguez Instructions Additional Instructions / Restrictions: Patient Problems: Altered Health Status related to Hospitalization Patient Goals: *Optimal Level of Health *Keep Appointments *Medication Compliance *Remain Safe Discharge Orders/Prescriptions Prescriptions: New oxycodone 5 mg tablet 5 mg PO Q4H PRN (Reason: pain) 4 Days Qty: 24 RF: 0 Continued atorvastatin 40 MG tablet 40 mg PO QHS RF: 0 amlodipine 5 MG tablet 5 mg PO DAILY PRN (Reason: Hypertension) RF: 0 levothyroxine 50 MCG tablet 50 mcg PO DAILY RF: 0 acetaminophen 500 MG tablet 1,000 mg PO Q6H PRN (Reason: Pain Score 1-3/10) RF: 0 cetirizine 10 mg Tablet 10 mg PO DAILY PRN (Reason: Allergic Symptoms) RF: 0 clopidogrel 75 mg Tablet 75 mg PO DAILY RF: 0 meclizine 25 mg Tablet 25 mg PO TID PRN (Reason: Dizziness) RF: 0 doxycycline hyclate 100 mg Tablet 100 mg PO BID RF: 0 Myrbetriq 25 mg Tablet Extended Release 24 Hr 25 mg PO DAILY RF: 0 benzonatate 200 mg capsule 200 mg PO TID PRN (Reason: cough) Qty: 20 RF: 0 Discontinued levofloxacin 750 mg tablet 750 mg PO DAILY Qty: 5 RF: 0 No Action levofloxacin 750 mg tablet 750 mg PO Q48@0600 RF: 0 Referrals / Follow Up: TRA BARRAZA [Other] TRA BARRAZA [Other] Disposition Disposition (needs filled in before D/C Order can be placed): Care Home Facility Documented by User: Dr. Jonathan Apodaca DO 05/19/21 20:36 Providers Date of Admission: 05/18/21 Reason For Visit: SUBCAITAL DISPLACED RIGHT FEMORAL NECK FRACTURE Medications at Discharge Home Medications amlodipine 5 mg PO DAILY PRN 05/20/20 atorvastatin 40 mg PO QHS 05/20/20 levothyroxine 50 mcg PO DAILY 05/20/20 acetaminophen 1,000 mg PO Q6H PRN tab 05/24/20 Myrbetriq 25 mg PO DAILY 05/14/21 benzonatate 200 mg PO TID PRN #20 cap 05/14/21 cetirizine 10 mg PO DAILY PRN 05/14/21 clopidogrel 75 mg PO DAILY 05/14/21 doxycycline hyclate 100 mg PO BID 05/14/21 meclizine 25 mg PO TID PRN 05/14/21 levofloxacin 750 mg PO Q48@0600 05/19/21 oxycodone 5 mg PO Q4H PRN 4 Days #24 tab 05/19/21 ABG / Lab / Microbiology Data Result Diagrams: 05/19/21 04:54 05/19/21 04:54 Discharge Plan Admission Admit Date/Time: 05/18/21 00:59 Primary Reason for Your Visit: Right hip fracture Attending Provider: Jonathan Apodaca Consulting Providers: Luis Fernando Rodriguez Instructions Additional Instructions / Restrictions: Patient Problems: Altered Health Status related to Hospitalization Patient Goals: *Optimal Level of Health *Keep Appointments *Medication Compliance *Remain Safe Discharge Orders/Prescriptions Prescriptions: New oxycodone 5 mg tablet 5 mg PO Q4H PRN (Reason: pain) 4 Days Qty: 24 RF: 0 Continued atorvastatin 40 MG tablet 40 mg PO QHS RF: 0 amlodipine 5 MG tablet 5 mg PO DAILY PRN (Reason: Hypertension) RF: 0 levothyroxine 50 MCG tablet 50 mcg PO DAILY RF: 0 acetaminophen 500 MG tablet 1,000 mg PO Q6H PRN (Reason: Pain Score 1-3/10) RF: 0 cetirizine 10 mg Tablet 10 mg PO DAILY PRN (Reason: Allergic Symptoms) RF: 0 clopidogrel 75 mg Tablet 75 mg PO DAILY RF: 0 meclizine 25 mg Tablet 25 mg PO TID PRN (Reason: Dizziness) RF: 0 doxycycline hyclate 100 mg Tablet 100 mg PO BID RF: 0 Myrbetriq 25 mg Tablet Extended Release 24 Hr 25 mg PO DAILY RF: 0 benzonatate 200 mg capsule 200 mg PO TID PRN (Reason: cough) Qty: 20 RF: 0 Discontinued levofloxacin 750 mg tablet 750 mg PO DAILY Qty: 5 RF: 0 No Action levofloxacin 750 mg tablet 750 mg PO Q48@0600 RF: 0 Referrals / Follow Up: TRA BARRAZA [Other] TRA BARRAZA [Other] Disposition Disposition (needs filled in before D/C Order can be placed): Care Home Facility Charges/Coding Addendum Addendum: Patient was seen and examined independently of Jolene Ron today, I talked with the patient's daughter who was in the room at the time my examination today as well as the patient, she appears stable for transfer to TCU for short-term skilled services today. On examination she appeared in good health and spirits, she does not appear to be in any distress. Vital signs as documented. Skin warm and dry and without overt rashes. Neck without JVD, thyroid appears normal, trachea is midline, neck is supple. Lungs clear, normal air movement was noted. Heart exam notable for regular rhythm, normal sounds and absence of murmurs, rubs or gallops. Abdomen unremarkable and without evidence of organomegaly, masses, or abdominal aortic enlargement, bowel sounds are present in all 4 quadrants, no abdominal tenderness was noted. Extremities nonedematous, no cyanosis was noted, no clubbing was noted. Neuro: Cranial nerves II through XII are grossly intact, no focal motor deficits were noted, sensation to light touch and pinprick is intact, motor exam 5/5 throughout. Psych: Patient is alert and oriented x3, she does not appear anxious or depressed, she does not appear agitated. I have reviewed Jolene Ron's discharge summary including her medical assessment and plan of care and endorse it. Visit Charges Inpatient E&M: 52957 Disch Hosp
[2021-05-19 14:46] LABS: Pathologist Review Reviewed
--- NOTE | 2021-05-19 15:23 | PHA.DC.MR ---
Pharmacy Service has performed discharge medication reconciliation for this patient. The patient's discharge medication list was reviewed for discrepancies and discrepancies were resolved. Home Medications amlodipine 5 mg PO DAILY PRN 05/20/20 atorvastatin 40 mg PO QHS 05/20/20 levothyroxine 50 mcg PO DAILY 05/20/20 acetaminophen 1,000 mg PO Q6H PRN tab 05/24/20 Myrbetriq 25 mg PO DAILY 05/14/21 benzonatate 200 mg PO TID PRN #20 cap 05/14/21 cetirizine 10 mg PO DAILY PRN 05/14/21 clopidogrel 75 mg PO DAILY 05/14/21 doxycycline hyclate 100 mg PO BID 05/14/21 meclizine 25 mg PO TID PRN 05/14/21 levofloxacin 750 mg PO Q48@0600 #1 tab 05/19/21 oxycodone 5 mg PO Q4H PRN 4 Days #24 tab 05/19/21
--- NOTE | 2021-05-19 15:55 | NURSING ---
Called report to Jonathan [facility] on TCU
== END 2021-05-19 16:11 | disposition skilled nursing facility (03) | DRG 521 ==
LOC: ED 05-18 00:45 → PCU 05-18 01:36
PROVIDERS: Student in an Organized Health Care Education/Training Program; Admitting Provider Hospitalist; Emergency Provider Emergency Medicine; Visit Provider Internal Medicine
PROC: 0SRR01A Replacement of Right Hip Joint, Femoral Surface with Metal Synthetic Substitute, Uncemented, Open Approach (ICD-10-PCS; CPT 27125; principal; 2021-05-18 18:20)
DX: S72.011A Unspecified intracapsular fracture of right femur, initial encounter for closed fracture (principal); J18.9 Pneumonia, unspecified organism; J96.01 Acute respiratory failure with hypoxia; E03.9 Hypothyroidism, unspecified; R42 Dizziness and giddiness; E78.5 Hyperlipidemia, unspecified; I12.9 Hypertensive chronic kidney disease with stage 1 through stage 4 chronic kidney disease, or unspecified chronic kidney disease; N32.81 Overactive bladder; I67.1 Cerebral aneurysm, nonruptured; N18.2 Chronic kidney disease, stage 2 (mild); W18.30XA Fall on same level, unspecified, initial encounter; Y93.89 Activity, other specified; Y92.009 Unspecified place in unspecified non-institutional (private) residence as the place of occurrence of the external cause; Y99.8 Other external cause status; Z79.890 Hormone replacement therapy; Z79.899 Other long term (current) drug therapy; Z79.02 Long term (current) use of antithrombotics/antiplatelets
CPT/HCPCS: 36415; 72170; 73502; 80048; 82306; 85025; 86850; 86900; 86901; 87426; 93005; 97162; 97166; 99251; 99285; C1776; J7120; A4216; G0463; J2405

== ENCOUNTER 2021-05-19 16:31 | Inpatient (IN) | payer MEDICARE, SELFPAY ==
[2021-05-19 16:39] VITALS: BP 114/69; PULSE 99; RESP 16; TEMP 36.7; O2SAT 88
[2021-05-19 17:19] VITALS: BMI 25.1
--- NOTE | 2021-05-19 17:56 | NURSING ---
CODE STATUS DISCUSSED WITH R' AND DAUGHTER HERE ON ADMIT. WISHES TO BE DNRCC-A NO INTUBATION.
[2021-05-19] MEDS: Doxycycline 100 MG CAPSULE PO (18:32)
[2021-05-19 19:07] VITALS: O2SAT 90
--- NOTE | 2021-05-19 19:59 | HP.PCM_ITS ---
HPI - General General Date of Admission: 05/19/21 HPI Narrative 05/17/2021 CHICHI WYNNE, is a 85 Female who presents to [facility] Emergency Department with fall. 05/18/2021 EKG normal sinus rhythm, left axis deviation. Right hip pain. On antibiotics for pneumonia recently. X-ray shows right hip fracture. 05/17/2021 Admit to Hospital. Morphine IV as needed for pain. 05/14/2021 CTA chest showed bibasilar pneumonia. covid19 negative. Oxygen per nasal cannula for hypoxia. 05/18/2021 No pain, No dizziness. Continue Levaquin, Doxycycline for pneumonia. 05/18/2021 Dr. Rodriguez performed right hip hemiarthroplasty. 05/19/2021 Admit to TCU with debility, here for rehabilitation, strengthening, prior to discharge home with family. [facility] Medical History (Updated 05/19/21 @ 20:[address] Rahul Baker MD) Brain aneurysm Hypothyroidism Non-smoker Stage 3 chronic kidney disease Vertigo Home Medications amlodipine 5 mg PO DAILY PRN 05/20/20 [History Last Taken Unknown] atorvastatin 40 mg PO QHS 05/20/20 [History Last Taken Unknown] levothyroxine 50 mcg PO DAILY 05/20/20 [History Last Taken Unknown] acetaminophen 1,000 mg PO Q6H PRN tab 05/24/20 [Rx Last Taken Unknown] Myrbetriq 25 mg PO DAILY 05/14/21 [History Last Taken Unknown] benzonatate 200 mg PO TID PRN #20 cap 05/14/21 [Rx Last Taken Unknown] cetirizine 10 mg PO DAILY PRN 05/14/21 [History Last Taken Unknown] clopidogrel 75 mg PO DAILY 05/14/21 [History Last Taken Unknown] doxycycline hyclate 100 mg PO BID 05/14/21 [History Last Taken Unknown] meclizine 25 mg PO TID PRN 05/14/21 [History Last Taken Unknown] levofloxacin 750 mg PO Q48@0600 05/19/21 [History Last Taken Unknown] oxycodone 5 mg PO Q4H PRN 4 Days #24 tab 05/19/21 [Rx Last Taken Unknown] Allergy/AdvReac Type Severity Reaction Status Date / Time aspirin [ASA] Allergy Anaphylaxis Verified 05/17/21 23:11 Family History Other Cancer Peptic ulcer disease Surgical History (Updated 05/19/21 @ 20:[address] Rahul Baker MD) History of hip replacement History of right hip hemiarthroplasty History of total hip replacement Social History (Updated 05/19/21 @ 20:[address] Rahul Baker MD) household members: family and children Smoking Status: Never smoker ROS Constitutional Constitutional: Denies chills, fever(s) or weight gain ENT HEENT: Denies headache(s), nasal congestion or nasal discharge Cardiovascular Cardiovascular: Denies chest pain or palpitations Respiratory/Chest Respiratory/Chest: Denies cough, excessive phlegm production or shortness of breath with exertion Gastrointestinal Gastrointestinal: Denies abdominal pain, nausea or vomiting Genitourinary Genitourinary: Denies dysuria Musculoskeletal Musculoskeletal: Denies joint pain or joint swelling Integumentary Integumentary: Denies rash or wounds Neurologic Neurologic: Denies focal weakness, numbness or tingling Psychiatric Psychiatric: Reports auditory hallucinations; Denies anxiety, depression, homicidal ideation or suicidal ideation Vital Signs Vital Signs Vital Signs: 05/19/21 16:39 05/19/21 18:01 05/19/21 19:07 Temperature 98.1 F Temperature Source Oral Pulse Rate 99 Pulse Rhythm Regular Pulse Strength Normal (2+) Respiratory Rate 16 Respiratory Effort Normal Non-Labored Respiratory Depth Normal Respiratory Pattern Normal Blood Pressure 114/69 Blood Pressure Mean 84 Blood Pressure Source Monitor Blood Pressure Position Sitting Blood Pressure Location Left Arm Pulse Ox 88 90 Oxygen Delivery Method Room Air Nasal Cannula Nasal Cannula Oxygen Flow Rate (L/min) 2 2 Weight Weight: 68.492 kg Body Mass Index (BMI) 25.1 Physical Exam Const alert and oriented x3 General Appearance: cooperative HEENT normocephalic Eyes PERRL and EOMs intact bilaterally Neck supple, no JVD and no carotid bruits Resp normal respiratory effort, normal air movement and clear to auscultation bilaterally Cardio regular rate and regular rhythm GI normal to inspection, nondistended, normoactive bowel sounds, non-tender and non-distended Extremity normal capillary refill General Extremity: Negative for edema Skin no rashes or lesions noted General Skin Exam: no breakdown Psych affect normal Appearance: appropriate Assessment & Plan Assessment/Plan (1) Debility: (2) Closed subcapital fracture of neck of right femur: QUALIFIERS: Encounter type: initial encounter Qualified Code(s): S72.011A - Unspecified intracapsular fracture of right femur, initial encounter for closed fracture (3) History of right hip hemiarthroplasty: (4) Pneumonia: (5) BPPV (benign paroxysmal positional vertigo): (6) Acute respiratory failure with hypoxia: (7) Cerebral aneurysm: (8) Hypertension: (9) Hyperlipidemia: (10) Hypothyroidism: (11) Overactive bladder: PLAN: 85 year old female with below past medical history hospitalized for right hip fracture, underwent right hip hemiarthroplasty 05/18/[address] Rodriguez, complicated by pneumonia, admitted to TCU with debility, here for rehabilitation, strengthening, prior to discharge home with family. * Debility - PT/OT. * Pain - Tylenol 1000mg Q6H PRN pain (1-3), Oxycodone 5mg Q4H PRN pain (4-10). * Bowel - Miralax 17gm daily, Senna/colace 1 tablet twice daily, Dulcolax 10mg NM daily PRN. * Adult immunization - Administer prevnar 13, pneumovax 23, fluzone, covid19 vaccine as appropriate. * DVT prophylaxis - Lovenox 30mg sc daily. * Hypertension - Amlodipine 5mg daily. * Hyperlipidemia - Atorvastatin 40mg QHS. * Cough - Tessalon Perles 200mg TID PRN. * CV prophylaxis - Plavix 75mg daily. * Pneumonia - Doxycycline 100mg twice daily, Levaquin 750mg Q48H thru 05/29/2021. * Nutrition - Ensure Enlive 120ml 4x/day. * Hypothyroidism - Levothyroxine 50mcg daily. * Allergic Rhinitis - Loratadine 10mg daily PRN. * Dizziness - Meclizine 25mg tid PRN. * Skin irritation - Calmoseptine topical TID. * Overactive bladder - Myrbetriq 25mg daily.
[2021-05-19] MEDS: Menthol/Lanolin/Calamine/Znox 113 GM Tube 1 APPLIC TOPICAL (20:28)
[2021-05-19] MEDS: Atorvastatin Calcium 40 MG Tablet PO (20:29)
[2021-05-20] MEDS: oxyCODONE 5 MG Tablet PO (05:12)
[2021-05-20] MEDS: Clopidogrel Bisulfate 75 MG Tablet PO (05:13)
[2021-05-20] MEDS: Mirabegron 25 MG TAB.ER.24H PO (05:13)
[2021-05-20] MEDS: Levothyroxine 50 MCG Tablet PO (05:13)
[2021-05-20] MEDS: Doxycycline 100 MG CAPSULE PO ×2 (05:14→17:33)
[2021-05-20] MEDS: Enoxaparin 30 MG/0.3 ML Syringe SC (05:15)
[2021-05-20] MEDS: amLODIPine 5 MG Tablet PO (05:15)
[2021-05-20] MEDS: Senna/Docusate Sodium 1 Tablet PO ×2 (05:15→17:34)
[2021-05-20] MEDS: Polyethylene Glycol 3350 17 GM PACKET PO (05:15)
[2021-05-20 05:25] VITALS: BP 118/70; PULSE 91; RESP 16; TEMP 36.4; O2SAT 95
[2021-05-20 06:56] LABS: Absolute Lymphocyte Count 1.26 X10^3/uL (0.83-4.51); Absolute Neutrophil Count 15.7 X10^3/uL (2.0-7.7); Basophil# 0.03 X10^3/uL; Basophil% 0.2 % (0-1); Eosinophil# 0.03 X10^3/uL; Eosinophils% 0.2 % (0-5); Hemoglobin 8.4 g/dL (12.0-15.0); Lymphocyte # 1.26 X10^3/ul (0.83-4.51); Lymphocyte % 6.6 % (19-41); Mean Corp Hgb Conc 33.6 g/dL (32-36); Mean Corpuscular Hgb 30.3 pg (27.0-32.0); Mean Corpuscular Volume 90.3 fL (81-99); Monocyte# 1.93 X10^3/uL; Monocyte% 10.1 % (0-10); NRBC Flagged by Analyzer 0 % (0-5); Neutrophil # 15.65 X10^3/uL (2.7-7.7); POSITIVE DIFFERENTIAL YES; Platelet Count 219 K/mm3 (150-450); RBC Distribution Width CV 11.9 % (11.6-14.6); RBC Distribution Width SD 38.9 fl (35.1-43.9); Red Blood Count 2.77 M/mm3 (4.2-5.4); White Blood Count 19.1 K/mm3 (4.4-11.0)
[2021-05-20 07:01] LABS: Differential Indicated SCAN CRITERIA MET
[2021-05-20 07:22] LABS: Anion Gap 6 (5-15); BUN 19 mg/dL (7-18); BUN/Creat Ratio 19.1 RATIO (10-20); Calcium,Total 8.2 mg/dL (8.5-10.1); Chloride 95 mmol/L (98-107); EST Glomerular Filtration Rate 56 mL/min (>60); Est Glom Filt Rate - Afr Amer 68 mL/min (>60); Estimated Creatinine Clearance 37.01 ml/min; Glucose 153 mg/dL (74-106); Potassium 3.5 mmol/L (3.5-5.1); Sodium Level 130 mmol/L (136-145)
[2021-05-20 07:30] LABS: Differential Comment SCANNED
[2021-05-20 07:55] VITALS: O2SAT 95
[2021-05-20] MEDS: Menthol/Lanolin/Calamine/Znox 113 GM Tube 1 APPLIC TOPICAL ×3 (08:40→21:37)
[2021-05-20] MEDS: Tuberculin,Purif.prot.deriv. 50 TU/ML Vial 0.1 ML ID (10:37)
[2021-05-20 15:59] VITALS: BP 123/66; PULSE 102; RESP 18; TEMP 37.1; O2SAT 96
[2021-05-20] MEDS: Atorvastatin Calcium 40 MG Tablet PO (21:35)
[2021-05-21 05:00] VITALS: BP 128/69; PULSE 84; RESP 16; TEMP 36.5; O2SAT 95
[2021-05-21] MEDS: amLODIPine 5 MG Tablet PO (05:52)
[2021-05-21] MEDS: Levothyroxine 50 MCG Tablet PO (05:52)
[2021-05-21] MEDS: Polyethylene Glycol 3350 17 GM PACKET PO (05:52)
[2021-05-21] MEDS: levoFLOXacin 750 MG Tablet PO (05:52)
[2021-05-21] MEDS: Doxycycline 100 MG CAPSULE PO ×2 (05:52→17:26)
[2021-05-21] MEDS: Mirabegron 25 MG TAB.ER.24H PO (05:52)
[2021-05-21] MEDS: Clopidogrel Bisulfate 75 MG Tablet PO (05:52)
[2021-05-21] MEDS: Senna/Docusate Sodium 1 Tablet PO ×2 (05:52→17:26)
[2021-05-21] MEDS: Enoxaparin 30 MG/0.3 ML Syringe SC (05:53)
[2021-05-21] MEDS: Menthol/Lanolin/Calamine/Znox 113 GM Tube 1 APPLIC TOPICAL ×3 (05:58→21:15)
[2021-05-21 07:14] LABS: Absolute Lymphocyte Count 1.53 X10^3/uL (0.83-4.51); Absolute Neutrophil Count 11.9 X10^3/uL (2.0-7.7); Basophil# 0.03 X10^3/uL; Basophil% 0.2 % (0-1); Eosinophils% 0.6 % (0-5); Hematocrit 23.4 % (37-47); Lymphocyte # 1.53 X10^3/ul (0.83-4.51); Lymphocyte % 9.9 % (19-41); Mean Corp Hgb Conc 34.2 g/dL (32-36); Mean Corpuscular Hgb 31.3 pg (27.0-32.0); Mean Corpuscular Volume 91.4 fL (81-99); Mean Platelet Vol. 8.9 fl (6.2-12.0); Monocyte# 1.76 X10^3/uL; Monocyte% 11.4 % (0-10); NRBC Flagged by Analyzer 0 % (0-5); Neutrophil # 11.86 X10^3/uL (2.7-7.7); Neutrophil % 76.9 % (47-70); POSITIVE DIFFERENTIAL YES; Platelet Count 198 K/mm3 (150-450); RBC Distribution Width CV 11.9 % (11.6-14.6); RBC Distribution Width SD 40.2 fl (35.1-43.9); Red Blood Count 2.56 M/mm3 (4.2-5.4); White Blood Count 15.4 K/mm3 (4.4-11.0)
[2021-05-21 07:16] LABS: Differential Indicated SCAN CRITERIA MET
[2021-05-21 07:42] LABS: Hypochromasia 1+; Platelet Estimate ADEQUATE (ADEQ); Platelet Morphology LARGE
--- NOTE | 2021-05-21 08:00 | CPS ---
Patient has Incentive Spirometer at bedside and reports understanding using it on own
[2021-05-21 15:31] VITALS: BP 126/70; PULSE 94; RESP 24; TEMP 36; O2SAT 96
[2021-05-21] MEDS: oxyCODONE 5 MG Tablet PO ×2 (17:25→21:17)
[2021-05-21] MEDS: Atorvastatin Calcium 40 MG Tablet PO (21:15)
[2021-05-22] MEDS: Senna/Docusate Sodium 1 Tablet PO ×2 (05:26→17:40)
[2021-05-22] MEDS: Mirabegron 25 MG TAB.ER.24H PO (05:26)
[2021-05-22] MEDS: amLODIPine 5 MG Tablet PO (05:26)
[2021-05-22] MEDS: Levothyroxine 50 MCG Tablet PO (05:26)
[2021-05-22] MEDS: Doxycycline 100 MG CAPSULE PO ×2 (05:26→17:40)
[2021-05-22] MEDS: Polyethylene Glycol 3350 17 GM PACKET PO (05:26)
[2021-05-22] MEDS: Clopidogrel Bisulfate 75 MG Tablet PO (05:26)
[2021-05-22] MEDS: oxyCODONE 5 MG Tablet PO (05:30)
[2021-05-22 05:33] VITALS: BP 119/62; PULSE 78; RESP 16
[2021-05-22] MEDS: Menthol/Lanolin/Calamine/Znox 113 GM Tube 1 APPLIC TOPICAL ×3 (05:33→22:36)
[2021-05-22] MEDS: Acetaminophen 500 MG Tablet 1000 MG PO (07:41)
[2021-05-22] MEDS: Iron Polysaccharide Complex 150 MG CAPSULE PO (07:45)
--- NOTE | 2021-05-22 09:18 | NURSING ---
THERAPY CAME TO THIS NURSE AND STATED PT WAS THROWING UP. PT THREW UP 500CC,FOOD AND LIQUIDS. PT STATED SHE FELT DIZZY AND WEAK WHEN GETTING UP. RN AWARE
[2021-05-22 10:30] VITALS: PULSE 70; RESP 18; O2SAT 96
[2021-05-22 10:35] VITALS: O2SAT 93
[2021-05-22 12:46] LABS: Pathologist Review Reviewed
[2021-05-22 12:55] LABS: Pathologist Review Reviewed
--- NOTE | 2021-05-22 15:22 | PCM.PN.RX ---
Progress Note - Pharmacy Subjective: TCU Admission Objective: Allergies aspirin [ASA] Allergy (Verified 05/17/21 23:11) Anaphylaxis Current Medications Generic Name Dose Route Start Last Admin Trade Name Judah PRN Reason Stop Dose Admin Acetaminophen 1,000 mg 05/19/21 17:34 05/22/21 07:41 Acetaminophen 500 Mg Tablet PO 1,000 mg Q6H PRN Administration Pain Score 1-3/10 Amlodipine Besylate 5 mg 05/20/21 06:00 05/22/21 05:26 Amlodipine 5 Mg Tablet PO 5 mg DAILY ELLIS Administration Atorvastatin Calcium 40 mg 05/19/21 22:00 05/21/21 21:15 Atorvastatin Calcium 40 Mg Tablet PO 40 mg QHS ELLIS Administration Benzonatate 200 mg 05/19/21 17:46 Benzonatate 100 Mg Capsule PO TID PRN cough Bisacodyl 10 mg 05/19/21 17:44 Bisacodyl 10 Mg Suppository RC DAILY PRN Constipation Calamine/Phenol 1 applic 05/19/21 22:00 05/22/21 14:29 Menthol/Lanolin/Calamine/Znox 113 Gm Tube TOPICAL 1 applic TID ELLIS Administration Protocol Clopidogrel Bisulfate 75 mg 05/20/21 06:00 05/22/21 05:26 Clopidogrel Bisulfate 75 Mg Tablet PO 75 mg DAILY ELLIS Administration Doxycycline Monohydrate 100 mg 05/19/21 18:00 05/22/21 05:26 Doxycycline 100 Mg Capsule PO 05/29/21 22:59 100 mg BID ELLIS Administration Levofloxacin 750 mg 05/21/21 06:00 05/21/21 05:52 Levofloxacin 750 Mg Tablet PO 05/29/21 06:01 750 mg Q48@0600 ELLIS Administration Levothyroxine Sodium 50 mcg 05/20/21 06:00 05/22/21 05:26 Levothyroxine 50 Mcg Tablet PO 50 mcg DAILY ELLIS Administration Loratadine 10 mg 05/19/21 17:45 Loratadine 10 Mg Tablet PO DAILY PRN Allergic Symptoms Meclizine HCl 25 mg 05/19/21 17:34 Meclizine Hcl 25 Mg Tablet PO TID PRN Dizziness Mirabegron 25 mg 05/20/21 06:00 05/22/21 05:26 Mirabegron 25 Mg Tab.Er.24h PO 25 mg DAILY ELLIS Administration Nutritional Formula (Lactose Free) 120 ml 05/19/21 22:00 05/22/21 11:05 Ensure Enlive 120 Ml Liquid PO 120 ml 4X/DAY ELLIS Administration Oxycodone HCl 5 mg 05/19/21 20:30 05/22/21 05:30 Oxycodone 5 Mg Tablet PO 5 mg Q4H PRN Administration Pain Score 4-10 Polyethylene Glycol 17 gm 05/20/21 06:00 05/22/21 05:26 Polyethylene Glycol 3350 17 Gm Packet PO 17 gm DAILY ELLIS Administration Polysaccharide Iron Complex 150 mg 05/22/21 08:00 05/22/21 07:45 Iron Polysaccharide Complex 150 Mg Capsule PO 150 mg DAILYCM ELLIS Administration Senna/Docusate Sodium 1 tablet 05/20/21 06:00 05/22/21 05:26 Senna/Docusate Sodium 1 Tablet PO 1 tablet BID ELLIS Administration Tuberculin PPD 0.1 ml 05/27/21 10:00 Tuberculin,Purif.Prot.Deriv. 50 Tu/Ml Vial ID 05/27/21 10:01 X1 ONE Problem List (Last Reviewed 05/19/21 @ 20:[address] Rahul Baker MD) Overactive bladder (Acute) Hypothyroidism (Acute) Hyperlipidemia (Acute) Hypertension (Chronic) Cerebral aneurysm (Acute) Acute respiratory failure with hypoxia (Acute) BPPV (benign paroxysmal positional vertigo) (Acute) Pneumonia (Acute) Debility (Acute) History of right hip hemiarthroplasty (Acute) Closed subcapital fracture of neck of right femur (Acute) Vital Signs Temp Pulse Resp BP Pulse Ox 96.8 F L 78 16 119/62 96 05/21/21 15:31 05/22/21 05:33 05/22/21 05:33 05/22/21 05:33 05/21/21 15:31 Oxygen Flow Rate (L/min) 2 Oxygen Delivery Method Nasal Cannula Weight: 68.492 kg Body Mass Index (BMI) 25.1 Sodium 130 mmol/L (136-145) L 05/20/21 06:06 Potassium 3.5 mmol/L (3.5-5.1) 05/20/21 06:06 Chloride 95 mmol/L (98-107) L 05/20/21 06:06 Carbon Dioxide 29.0 mmol/L (21.0-32.0) 05/20/21 06:06 Anion Gap 6 (5-15) 05/20/21 06:06 BUN 19 mg/dL (7-18) H 05/20/21 06:06 Creatinine 1.00 mg/dL (0.55-1.02) 05/20/21 06:06 Est GFR (MDRD) Af Amer 68 mL/min (>60) 05/20/21 06:06 Est GFR (MDRD) Non-Af 56 mL/min (>60) L 05/20/21 06:06 BUN/Creatinine Ratio 19.1 RATIO (10-20) 05/20/21 06:06 Glucose 153 mg/dL (74-106) H 05/20/21 06:06 Assessment/Plan: 1. Pain: acetaminophen 1000mg PO Q6H PRN pain 1-3 and oxycodone 5mg PO Q4H PRN pain 4-10. Please continue to monitor for increased pain, PRN usage, constipation and respiratory depression. 2. CV prophylaxis: clopidogrel 75mg PO daily. Please continue to monitor for S/S of bleeding and hemoglobin (last 8 g/dL). 3. Pneumonia: doxycycline 100mg PO BID thru 05/29/21 and levofloxacin 750mg PO Q48H thru 05/29/21. Please continue to monitor for S/S of infection and renal function. 4. Hypertension: amlodipine 5mg PO daily. Please continue to monitor BP (last 119/62) and swelling. *5. Hyperlipidemia: atorvastatin 40mg PO QHS. Please consider ordering a lipid panel if clinically appropriate (no lipid panel in chart.) Please continue to monitor for muscle pain. *6. Hypothyroidism: levothyroxine 50mcg PO daily. Please consider ordering a TSH if clinically appropriate (no lipid panel in chart.) Please continue to monitor for S/S of hypo/hyperthyroidism. 7. Overactive bladder: mirabegron 25mg PO daily. Please continue to monitor for S/S of overactive bladder and anticholinergic side effects. 8. Iron deficiency (hemoglobin 8 g/dL): Ferrex 150mg PO DAILYCM. Please continue to monitor hemoglobin, constipation and for dark stools. 9. Cough: benzonatate 200mg PO TID PRN cough. Please continue to monitor for cough and PRN usage. 10. Allergic rhinitis: loratadine 10mg PO daily PRN allergic symptoms. Please continue to monitor for allergy symptoms and PRN usage. 11. Dizziness: meclizine 25mg PO TID PRN dizziness. Please continue to monitor for dizziness and PRN usage. Psychotropic Medications: None Unnecessary Medications: None Bowel Regimen: Miralax 17gm PO daily, senna/docusate 1T PO BID and bisacodyl 10mg RC daily PRN constipation. Please continue to monitor for constipation and PRN usage. Date of Note:: 05/22/21
--- NOTE | 2021-05-22 16:15 | RAD_ITS ---
STUDY: X-RAY - ABDOMEN/PELVIS REASON FOR EXAM: Female, 85 years old. constipation TECHNIQUE: Single AP view of the abdomen / pelvis. COMPARISON: None. FINDINGS: Normal visualized lung bases. There is an unremarkable bowel gas pattern. The visualized liver, spleen and kidneys are grossly normal in size and morphology. Normal soft tissue structures. Status post bilateral hip arthroplasty. RAD/Abdomen Single View (Portable) IMPRESSION: Normal x-ray examination of the abdomen and pelvis. Electronically Signed: Fritz Lanza MD at 16:40 EDT Tel , Service support ,
--- NOTE | 2021-05-22 17:31 | CASEMGMT ---
Social Work Met with patient for initial assessment. Discussed code status. Pt confirms DNR-CCA, no intubation. Completed new MOLST form. Communication to , placed in chart. Discussed [employer] with NRD 05/23 and continued stay is not guaranteed with each review. Pt still lives in [place] in mobile home, but is currently staying with dtr and will DC to dtrs home. Pt lost March 2021 and is sad, but coping well with good support systems. Offered grief counseling or bereavement assistance - pt denied. Provided and offered ongoing emotional support. pt agreed to referral to [facility]. Referral made. SW to continue to follow. Soraida Sagastume, TICKET COLLECTOR OR USHER WINDOW SHADE ESTIMATOR
[2021-05-22] MEDS: Atorvastatin Calcium 40 MG Tablet PO (22:36)
[2021-05-23] MEDS: oxyCODONE 5 MG Tablet PO ×2 (01:23→08:00)
[2021-05-23] MEDS: Mirabegron 25 MG TAB.ER.24H PO (05:28)
[2021-05-23] MEDS: Doxycycline 100 MG CAPSULE PO ×2 (05:28→17:20)
[2021-05-23] MEDS: levoFLOXacin 750 MG Tablet PO (05:28)
[2021-05-23] MEDS: Clopidogrel Bisulfate 75 MG Tablet PO (05:28)
[2021-05-23] MEDS: Senna/Docusate Sodium 1 Tablet PO ×2 (05:28→17:20)
[2021-05-23] MEDS: Levothyroxine 50 MCG Tablet PO (05:28)
[2021-05-23] MEDS: amLODIPine 5 MG Tablet PO (05:28)
[2021-05-23] MEDS: Menthol/Lanolin/Calamine/Znox 113 GM Tube 1 APPLIC TOPICAL ×3 (05:31→21:33)
[2021-05-23 05:33] VITALS: BP 106/59; PULSE 73; RESP 16
[2021-05-23 05:36] LABS: Hematocrit 21.9 % (37-47); Hemoglobin 7.2 g/dL (12.0-15.0)
--- NOTE | 2021-05-23 06:45 | NURSING ---
CAR SCRUBBER notifies this nurse of Hgb result of 7.2, updated via telephone. No new orders at this time.
[2021-05-23 06:50] VITALS: O2SAT 93
[2021-05-23] MEDS: Iron Polysaccharide Complex 150 MG CAPSULE PO (08:00)
--- NOTE | 2021-05-23 09:01 | PCA ---
BEATRICE ivory informed this aide that pt had vomited when performing ADLS. this aide reported the incident to Sirisha GTZ on duty.
--- NOTE | 2021-05-23 12:44 | CASEMGMT ---
Social Work IDT met with patient and dtr, Erika, for care plan meeting. Discussed patient's progress in therapy. Explained [employer] insurance with NRD 05/23 and continued stay is not guaranteed. The goal is for pt to DC home with dtr, however, pt is currently x2 assist. Pt and dtr realistic pt cannot DC to dtr's house with two assist. Briefly explained after TCU stay if pt would need a SNF, it would private pay or [facility]. Both expressed understanding. Dtr expressed concern with pts mood and appetite. Nursing left note to Dr. Baker. SW to continue to follow. Soraida Sagastume, PROPELLER DRIVEN AIRPLANE MECHANIC BLOCK LAYER
[2021-05-23 14:40] VITALS: BP 123/58; PULSE 80; RESP 16; TEMP 36.8; O2SAT 97
--- NOTE | 2021-05-23 15:34 | CHAPLAIN ---
Type of Pastoral Visit _x__ Initial Visit ___ Follow-up Visit ___ On-call Visit ___ General Patient Visit ___ Spiritual Assessment ___ Family Conference ___ Bereavement ___ Rapid Response ___ Code Blue ___ Other (describe below) Pastoral Care Referral From _x__ Patient ___ Family ___ Nurse ___ Physician _x__ Critical Care Registered Nurse ___ Splicing Supervisor ___ Other (describe below) Sacrament/Intervention _x__ Active listening ___ Anointing ___ Buddhism ___ Bereavement ___ Communion _x__ Shereen exploration ___ _x__ Life review _x__ Prayer ___ Reconciliation ___ Sacrament of Sick _x__ Supportive presence ___ Wedding ___ Other (describe below) Pastoral Comments long time for presence and discussion with life review; pt admits to feeling down and lose of energy; plan is for pt to have transfusion; during life review pt reports many good blessings of life, great family, many friends, strong shereen, and hope; pt is open to further spiritual care and prayers
[2021-05-23] MEDS: Atorvastatin Calcium 40 MG Tablet PO (21:34)
[2021-05-23] MEDS: Mirtazapine 15 MG Tablet 7.5 MG PO (21:37)
[2021-05-23 22:00] VITALS: PULSE 73; O2SAT 96
[2021-05-24] MEDS: Levothyroxine 50 MCG Tablet PO (06:20)
[2021-05-24] MEDS: Senna/Docusate Sodium 1 Tablet PO ×2 (06:20→17:32)
[2021-05-24] MEDS: Clopidogrel Bisulfate 75 MG Tablet PO (06:20)
[2021-05-24] MEDS: Mirabegron 25 MG TAB.ER.24H PO (06:21)
[2021-05-24] MEDS: Doxycycline 100 MG CAPSULE PO ×2 (06:21→17:32)
[2021-05-24] MEDS: Menthol/Lanolin/Calamine/Znox 113 GM Tube 1 APPLIC TOPICAL ×3 (06:21→20:35)
[2021-05-24] MEDS: amLODIPine 5 MG Tablet PO (06:21)
[2021-05-24] MEDS: Iron Polysaccharide Complex 150 MG CAPSULE PO (07:55)
--- NOTE | 2021-05-24 08:11 | NURSING ---
Addendum entered by Mary Gramajo 05/24/21 16:02: pt returned from infusion center at 1345 Original Note: Pt left floor for infusion center, 22g saline lock started in RFA
[2021-05-24] MEDS: oxyCODONE 5 MG Tablet PO ×2 (15:03→20:39)
[2021-05-24 15:28] VITALS: BP 125/67; PULSE 77; RESP 16; TEMP 36.8; O2SAT 96
[2021-05-24] MEDS: Mirtazapine 15 MG Tablet 7.5 MG PO (20:36)
[2021-05-24] MEDS: Atorvastatin Calcium 40 MG Tablet PO (20:36)
[2021-05-25] MEDS: Doxycycline 100 MG CAPSULE PO ×2 (05:18→17:40)
[2021-05-25] MEDS: Levothyroxine 50 MCG Tablet PO (05:18)
[2021-05-25] MEDS: Senna/Docusate Sodium 1 Tablet PO ×2 (05:18→17:40)
[2021-05-25] MEDS: Mirabegron 25 MG TAB.ER.24H PO (05:18)
[2021-05-25] MEDS: amLODIPine 5 MG Tablet PO (05:18)
[2021-05-25] MEDS: levoFLOXacin 750 MG Tablet PO (05:19)
[2021-05-25] MEDS: Menthol/Lanolin/Calamine/Znox 113 GM Tube 1 APPLIC TOPICAL ×3 (05:19→20:54)
[2021-05-25] MEDS: Clopidogrel Bisulfate 75 MG Tablet PO (05:19)
[2021-05-25] MEDS: oxyCODONE 5 MG Tablet PO ×3 (05:19→20:52)
[2021-05-25 05:59] LABS: Hematocrit 30.9 % (37-47); Hemoglobin 10.6 g/dL (12.0-15.0)
[2021-05-25 06:54] VITALS: O2SAT 95
[2021-05-25] MEDS: Iron Polysaccharide Complex 150 MG CAPSULE PO (08:50)
[2021-05-25 12:25] VITALS: BP 106/62; PULSE 76; RESP 16; TEMP 36.3; O2SAT 98
--- NOTE | 2021-05-25 15:38 | NURSING ---
REMOVED MEPILEX TO RIGHT HIP PER ORDER. NO DRAINAGE AT THIS TIME AND FRANCOIS INTACT. MILD BRUISING AND SWELLING. RN AWARE
[2021-05-25 20:38] VITALS: PULSE 77; RESP 16; O2SAT 94
[2021-05-25] MEDS: Atorvastatin Calcium 40 MG Tablet PO (20:38)
[2021-05-25] MEDS: Mirtazapine 15 MG Tablet 7.5 MG PO (20:38)
[2021-05-26] MEDS: Senna/Docusate Sodium 1 Tablet PO (05:18)
[2021-05-26] MEDS: Clopidogrel Bisulfate 75 MG Tablet PO (05:18)
[2021-05-26] MEDS: Doxycycline 100 MG CAPSULE PO ×2 (05:18→17:39)
[2021-05-26] MEDS: Levothyroxine 50 MCG Tablet PO (05:18)
[2021-05-26] MEDS: Mirabegron 25 MG TAB.ER.24H PO (05:18)
[2021-05-26] MEDS: amLODIPine 5 MG Tablet PO (05:18)
[2021-05-26] MEDS: oxyCODONE 5 MG Tablet PO ×2 (05:19→16:13)
[2021-05-26] MEDS: Iron Polysaccharide Complex 150 MG CAPSULE PO (07:42)
[2021-05-26] MEDS: Menthol/Lanolin/Calamine/Znox 113 GM Tube 1 APPLIC TOPICAL ×3 (07:44→20:57)
[2021-05-26 10:00] VITALS: PULSE 72; RESP 18; O2SAT 96
--- NOTE | 2021-05-26 10:40 | NURSING ---
saline lock removed from right wrist. pt tolerated well.
[2021-05-26 14:52] VITALS: BP 104/54; PULSE 79; RESP 14; TEMP 36.9; O2SAT 95
[2021-05-26] MEDS: Mirtazapine 15 MG Tablet 7.5 MG PO (20:57)
[2021-05-26] MEDS: Nystatin Powder 15gm Bottle 1 APPLIC TOPICAL (20:57)
[2021-05-26] MEDS: Atorvastatin Calcium 40 MG Tablet PO (20:58)
[2021-05-27] MEDS: amLODIPine 5 MG Tablet PO (05:19)
[2021-05-27] MEDS: Doxycycline 100 MG CAPSULE PO ×2 (05:19→17:15)
[2021-05-27] MEDS: levoFLOXacin 750 MG Tablet PO (05:19)
[2021-05-27] MEDS: Mirabegron 25 MG TAB.ER.24H PO (05:19)
[2021-05-27] MEDS: Clopidogrel Bisulfate 75 MG Tablet PO (05:19)
[2021-05-27] MEDS: Levothyroxine 50 MCG Tablet PO (05:19)
[2021-05-27] MEDS: Menthol/Lanolin/Calamine/Znox 113 GM Tube 1 APPLIC TOPICAL ×3 (05:20→20:07)
[2021-05-27] MEDS: Nystatin Powder 15gm Bottle 1 APPLIC TOPICAL ×2 (05:20→17:15)
[2021-05-27 07:20] VITALS: O2SAT 94
[2021-05-27] MEDS: Iron Polysaccharide Complex 150 MG CAPSULE PO (08:38)
[2021-05-27 08:40] LABS: Absolute Lymphocyte Count 1.55 X10^3/uL (0.83-4.51); Basophil# 0.05 X10^3/uL; Basophil% 0.5 % (0-1); Eosinophil# 0.36 X10^3/uL; Eosinophils% 3.7 % (0-5); Hematocrit 31.9 % (37-47); Hemoglobin 10.4 g/dL (12.0-15.0); Lymphocyte # 1.55 X10^3/ul (0.83-4.51); Lymphocyte % 15.9 % (19-41); Mean Corp Hgb Conc 32.6 g/dL (32-36); Mean Corpuscular Hgb 30.1 pg (27.0-32.0); Mean Corpuscular Volume 92.5 fL (81-99); Mean Platelet Vol. 8.7 fl (6.2-12.0); Monocyte# 1.59 X10^3/uL; Monocyte% 16.3 % (0-10); NRBC Flagged by Analyzer 0 % (0-5); Neutrophil # 5.99 X10^3/uL (2.7-7.7); Neutrophil % 61.5 % (47-70); POSITIVE DIFFERENTIAL YES; Platelet Count 391 K/mm3 (150-450); RBC Distribution Width CV 12.5 % (11.6-14.6); RBC Distribution Width SD 42.4 fl (35.1-43.9); Red Blood Count 3.45 M/mm3 (4.2-5.4); White Blood Count 9.7 K/mm3 (4.4-11.0)
[2021-05-27 08:42] LABS: Differential Indicated SCAN CRITERIA MET
[2021-05-27 09:21] LABS: Anion Gap 6 (5-15); BUN 20 mg/dL (7-18); BUN/Creat Ratio 20.7 RATIO (10-20); Calcium,Total 8.5 mg/dL (8.5-10.1); Chloride 100 mmol/L (98-107); Creatinine, Serum 0.96 mg/dL (0.55-1.02); EST Glomerular Filtration Rate 58 mL/min (>60); Est Glom Filt Rate - Afr Amer 71 mL/min (>60); Estimated Creatinine Clearance 38.55 ml/min; Glucose 104 mg/dL (74-106); Potassium 4.2 mmol/L (3.5-5.1); Sodium Level 134 mmol/L (136-145)
[2021-05-27] MEDS: Tuberculin,Purif.prot.deriv. 50 TU/ML Vial 0.1 ML ID (13:29)
[2021-05-27] MEDS: Acetaminophen 500 MG Tablet 1000 MG PO (14:07)
[2021-05-27 14:18] VITALS: BP 103/64; RESP 16; TEMP 36.3; O2SAT 96
[2021-05-27] MEDS: Atorvastatin Calcium 40 MG Tablet PO (20:08)
[2021-05-27] MEDS: Mirtazapine 15 MG Tablet 7.5 MG PO (20:08)
[2021-05-27 22:20] VITALS: PULSE 71; RESP 14
[2021-05-28] MEDS: Doxycycline 100 MG CAPSULE PO ×2 (06:05→17:10)
[2021-05-28] MEDS: Menthol/Lanolin/Calamine/Znox 113 GM Tube 1 APPLIC TOPICAL ×3 (06:05→21:44)
[2021-05-28] MEDS: Levothyroxine 50 MCG Tablet PO (06:06)
[2021-05-28] MEDS: Mirabegron 25 MG TAB.ER.24H PO (06:06)
[2021-05-28] MEDS: Nystatin Powder 15gm Bottle 1 APPLIC TOPICAL ×2 (06:06→17:11)
[2021-05-28] MEDS: Clopidogrel Bisulfate 75 MG Tablet PO (06:06)
[2021-05-28] MEDS: amLODIPine 5 MG Tablet PO (06:06)
[2021-05-28] MEDS: levoFLOXacin 750 MG Tablet PO (06:08)
[2021-05-28] MEDS: Iron Polysaccharide Complex 150 MG CAPSULE PO (08:07)
[2021-05-28] MEDS: Acetaminophen 500 MG Tablet 1000 MG PO (11:07)
[2021-05-28 14:32] VITALS: BP 110/58; PULSE 78; RESP 16; TEMP 36.3; O2SAT 95
[2021-05-28] MEDS: Atorvastatin Calcium 40 MG Tablet PO (21:44)
[2021-05-28] MEDS: Mirtazapine 15 MG Tablet 7.5 MG PO (21:44)
[2021-05-29] MEDS: Mirabegron 25 MG TAB.ER.24H PO (05:32)
[2021-05-29] MEDS: Clopidogrel Bisulfate 75 MG Tablet PO (05:32)
[2021-05-29] MEDS: Levothyroxine 50 MCG Tablet PO (05:32)
[2021-05-29] MEDS: Doxycycline 100 MG CAPSULE PO ×2 (05:32→17:02)
[2021-05-29] MEDS: amLODIPine 5 MG Tablet PO (05:32)
[2021-05-29] MEDS: Menthol/Lanolin/Calamine/Znox 113 GM Tube 1 APPLIC TOPICAL ×3 (05:33→21:13)
[2021-05-29] MEDS: Nystatin Powder 15gm Bottle 1 APPLIC TOPICAL ×2 (05:33→21:15)
[2021-05-29] MEDS: Iron Polysaccharide Complex 150 MG CAPSULE PO (08:32)
[2021-05-29] MEDS: Acetaminophen 500 MG Tablet 1000 MG PO ×2 (10:45→21:10)
[2021-05-29 13:40] VITALS: O2SAT 95
[2021-05-29 14:45] VITALS: BP 122/58; PULSE 65; RESP 18; TEMP 36.1; O2SAT 96
[2021-05-29] MEDS: Mirtazapine 15 MG Tablet 7.5 MG PO (21:03)
[2021-05-29] MEDS: Atorvastatin Calcium 40 MG Tablet PO (21:05)
[2021-05-30] MEDS: amLODIPine 5 MG Tablet PO (05:31)
[2021-05-30] MEDS: Levothyroxine 50 MCG Tablet PO (05:31)
[2021-05-30] MEDS: Mirabegron 25 MG TAB.ER.24H PO (05:31)
[2021-05-30] MEDS: Clopidogrel Bisulfate 75 MG Tablet PO (05:31)
[2021-05-30] MEDS: Nystatin Powder 15gm Bottle 1 APPLIC TOPICAL ×2 (05:33→23:13)
[2021-05-30] MEDS: Menthol/Lanolin/Calamine/Znox 113 GM Tube 1 APPLIC TOPICAL ×3 (05:34→23:13)
[2021-05-30 05:37] VITALS: BP 146/85; PULSE 73
[2021-05-30] MEDS: Iron Polysaccharide Complex 150 MG CAPSULE PO (08:18)
[2021-05-30 10:00] VITALS: PULSE 74; RESP 18; O2SAT 96
[2021-05-30 13:20] VITALS: BP 125/56; PULSE 82; RESP 17; TEMP 36.4; O2SAT 93
--- NOTE | 2021-05-30 15:10 | MDS.RN ---
Information for the mds was obtained from review of the clinical record, interview of resident, staff, and direct observation of resident's care.
[2021-05-30] MEDS: Acetaminophen 500 MG Tablet 1000 MG PO (18:04)
[2021-05-30] MEDS: Atorvastatin Calcium 40 MG Tablet PO (23:14)
[2021-05-30] MEDS: Mirtazapine 15 MG Tablet 7.5 MG PO (23:14)
[2021-05-31] MEDS: amLODIPine 5 MG Tablet PO (04:42)
[2021-05-31] MEDS: Levothyroxine 50 MCG Tablet PO (04:42)
[2021-05-31] MEDS: Mirabegron 25 MG TAB.ER.24H PO (04:42)
[2021-05-31] MEDS: Menthol/Lanolin/Calamine/Znox 113 GM Tube 1 APPLIC TOPICAL ×3 (04:42→20:34)
[2021-05-31] MEDS: Clopidogrel Bisulfate 75 MG Tablet PO (04:42)
[2021-05-31] MEDS: Nystatin Powder 15gm Bottle 1 APPLIC TOPICAL ×2 (04:43→17:12)
--- NOTE | 2021-05-31 08:18 | CASEMGMT ---
Social Work Insurance issued LCD 06/02, DC 06/03. Spoke with pt's dtr to update and confirm pt can DC to her home in [place]. Dtr agreeable and requested [facility]. Referral made to [facility] PT/OT/SN. No DME needs. Dtr to transport. Spoke with pt, pt agreeable to above. Plan: DC to dtr's home 06/03 with [facility] PT/OT/SN Soraida Sagastume, JIMENEZ LINDOW
[2021-05-31] MEDS: Iron Polysaccharide Complex 150 MG CAPSULE PO (08:22)
[2021-05-31] MEDS: Acetaminophen 500 MG Tablet 1000 MG PO (13:34)
[2021-05-31 16:00] VITALS: BP 100/64; PULSE 84; RESP 16; TEMP 28.8; O2SAT 93
[2021-05-31] MEDS: Mirtazapine 15 MG Tablet 7.5 MG PO (20:34)
[2021-05-31] MEDS: Atorvastatin Calcium 40 MG Tablet PO (20:36)
--- NOTE | 2021-05-31 21:08 | PCM.DC.SUM ---
Providers Date of Admission: 05/19/21 Primary Care Physician: TRA BARRAZA Reason For Visit: RIGHT HIP FRACTURE Diagnosis Discharge Diagnosis (1) Debility: Status: Acute Code(s): R53.81 - Other malaise (2) Closed subcapital fracture of neck of right femur: Status: Acute Code(s): S72.011A - Unspecified intracapsular fracture of right femur, initial encounter for closed fracture Qualifiers: Encounter type: initial encounter Qualified Code(s): S72.011A - Unspecified intracapsular fracture of right femur, initial encounter for closed fracture (3) History of right hip hemiarthroplasty: Status: Acute Code(s): Z96.641 - Presence of right artificial hip joint (4) Pneumonia: Status: Acute Code(s): J18.9 - Pneumonia, unspecified organism (5) BPPV (benign paroxysmal positional vertigo): Status: Acute Code(s): H81.10 - Benign paroxysmal vertigo, unspecified ear (6) Acute respiratory failure with hypoxia: Status: Acute Code(s): J96.01 - Acute respiratory failure with hypoxia (7) Cerebral aneurysm: Status: Acute Code(s): I67.1 - Cerebral aneurysm, nonruptured (8) Hypertension: Status: Chronic Code(s): I10 - Essential (primary) hypertension (9) Hyperlipidemia: Status: Acute Code(s): E78.5 - Hyperlipidemia, unspecified (10) Hypothyroidism: Status: Acute Code(s): E03.9 - Hypothyroidism, unspecified (11) Overactive bladder: Status: Acute Code(s): N32.81 - Overactive bladder Medications at Discharge Home Medications amlodipine 5 mg PO DAILY PRN 05/20/20 atorvastatin 40 mg PO QHS 05/20/20 levothyroxine 50 mcg PO DAILY 05/20/20 acetaminophen 1,000 mg PO Q6H PRN tab 05/24/20 Myrbetriq 25 mg PO DAILY 05/14/21 benzonatate 200 mg PO TID PRN #20 cap 05/14/21 cetirizine 10 mg PO DAILY PRN 05/14/21 clopidogrel 75 mg PO DAILY 05/14/21 meclizine 25 mg PO TID PRN 05/14/21 mirtazapine 7.5 mg PO QHS 30 Days #15 tab 05/31/21 polysaccharide iron complex [Ferrex 150] 150 mg PO DAILYCM 30 Days #30 cap 05/31/21 Hospital Course Operations total hip replacement (Right hip hemiarthroplasty.) Procedures None Summary of Care Provided Minutes Spent on Discharge: 35 Hospital Course: 85 year old female with below past medical history hospitalized for right hip fracture, underwent right hip hemiarthroplasty 05/18/[address] Rodriguez, complicated by pneumonia, admitted to TCU with debility, here for rehabilitation, strengthening, prior to discharge home with family. Discharge to daughter's house 06/03/2021, [facility] PT/OT/SN. Physical Exam Const alert and oriented x3 General Appearance: cooperative HEENT normocephalic Eyes PERRL and EOMs intact bilaterally Neck supple, no JVD and no carotid bruits Resp normal respiratory effort, normal air movement and clear to auscultation bilaterally Cardio regular rate and regular rhythm GI normal to inspection, nondistended, normoactive bowel sounds, non-tender and non-distended Extremity normal capillary refill General Extremity: Negative for edema Skin no rashes or lesions noted General Skin Exam: no breakdown Psych affect normal Appearance: appropriate Weight / BMI Weight Weight: 68.492 kg Body Mass Index (BMI) 25.1 ABG / Lab / Microbiology Data Result Diagrams: 05/27/21 07:30 05/27/21 07:30 D/C Instructions Discharge Diet: No restrictions Discharge Activity: Return to Normal Activity, May Shower and Use Walker Weight Bearing Status: Weight bearing as tolerated Call your doctor if you observe: Fever of 101 or Higher, Inability to urinate, Inability to have a bowel movement, Shortness of breath, Dizziness, Fainting spells, Swelling in the ankles, Chest pain and Uncontrolled pain Additional Instructions: Discharge to daughter's house 06/03/2021, [facility] PT/OT/SN. Please Follow Up With: Luis Fernando Rodriguez DO When: As scheduled. Meaningful Use Info Meaningful Use Diagnoses (Choose all that apply): None applicable Discharge Plan Admission Admit Date/Time: 05/19/21 16:31 Primary Reason for Your Visit: Debility. Attending Provider: Rahul Baker Chi Instructions Additional Instructions / Restrictions: Discharge to daughter's house 06/03/2021, [facility] PT/OT/SN. Discharge Orders/Prescriptions Prescriptions: New polysaccharide iron complex [Ferrex 150] 150 mg iron Capsule 150 mg PO DAILYCM 30 Days Qty: 30 RF: 0 mirtazapine 15 mg Tablet 7.5 mg PO QHS 30 Days Qty: 15 RF: 0 Continued atorvastatin 40 MG tablet 40 mg PO QHS RF: 0 amlodipine 5 MG tablet 5 mg PO DAILY PRN (Reason: Hypertension) RF: 0 levothyroxine 50 MCG tablet 50 mcg PO DAILY RF: 0 acetaminophen 500 MG tablet 1,000 mg PO Q6H PRN (Reason: Pain Score 1-3/10) RF: 0 cetirizine 10 mg Tablet 10 mg PO DAILY PRN (Reason: Allergic Symptoms) RF: 0 clopidogrel 75 mg Tablet 75 mg PO DAILY RF: 0 meclizine 25 mg Tablet 25 mg PO TID PRN (Reason: Dizziness) RF: 0 Myrbetriq 25 mg Tablet Extended Release 24 Hr 25 mg PO DAILY RF: 0 benzonatate 200 mg capsule 200 mg PO TID PRN (Reason: cough) Qty: 20 RF: 0 Discontinued doxycycline hyclate 100 mg Tablet 100 mg PO BID RF: 0 oxycodone 5 mg tablet 5 mg PO Q4H PRN (Reason: pain) 4 Days Qty: 24 RF: 0 levofloxacin 750 mg tablet 750 mg PO Q48@0600 RF: 0 Referrals / Follow Up: TRA BARRAZA [Other] Disposition Disposition (needs filled in before D/C Order can be placed): Home Health Service
[2021-05-31 22:00] VITALS: PULSE 80; O2SAT 96
[2021-05-31] MEDS: oxyCODONE 5 MG Tablet PO (23:33)
[2021-06-01] MEDS: Mirabegron 25 MG TAB.ER.24H PO (05:45)
[2021-06-01] MEDS: Levothyroxine 50 MCG Tablet PO (05:45)
[2021-06-01] MEDS: amLODIPine 5 MG Tablet PO (05:45)
[2021-06-01] MEDS: Clopidogrel Bisulfate 75 MG Tablet PO (05:45)
[2021-06-01] MEDS: Nystatin Powder 15gm Bottle 1 APPLIC TOPICAL ×2 (05:46→17:04)
[2021-06-01] MEDS: Menthol/Lanolin/Calamine/Znox 113 GM Tube 1 APPLIC TOPICAL ×3 (05:46→20:13)
[2021-06-01] MEDS: Iron Polysaccharide Complex 150 MG CAPSULE PO (07:52)
[2021-06-01] MEDS: Acetaminophen 500 MG Tablet 1000 MG PO (12:48)
[2021-06-01 13:47] VITALS: BP 102/59; PULSE 83; RESP 17; TEMP 36.4; O2SAT 96
--- NOTE | 2021-06-01 14:47 | MDS.RN ---
Pain interview for ABELINO 06/03/21 completed.
[2021-06-01] MEDS: Mirtazapine 15 MG Tablet 7.5 MG PO (20:13)
[2021-06-01] MEDS: Atorvastatin Calcium 40 MG Tablet PO (20:14)
[2021-06-02 04:25] VITALS: BP 135/76; PULSE 74; RESP 16; TEMP 36.1; O2SAT 94
[2021-06-02] MEDS: Levothyroxine 50 MCG Tablet PO (04:29)
[2021-06-02] MEDS: amLODIPine 5 MG Tablet PO (04:29)
[2021-06-02] MEDS: Clopidogrel Bisulfate 75 MG Tablet PO (04:29)
[2021-06-02] MEDS: Mirabegron 25 MG TAB.ER.24H PO (04:29)
[2021-06-02] MEDS: Menthol/Lanolin/Calamine/Znox 113 GM Tube 1 APPLIC TOPICAL ×3 (04:30→21:53)
[2021-06-02] MEDS: Nystatin Powder 15gm Bottle 1 APPLIC TOPICAL ×2 (04:30→17:29)
[2021-06-02] MEDS: Iron Polysaccharide Complex 150 MG CAPSULE PO (08:09)
[2021-06-02 14:13] VITALS: BP 109/62; PULSE 84; RESP 18; TEMP 36.6; O2SAT 96
[2021-06-02] MEDS: Mirtazapine 15 MG Tablet 7.5 MG PO (21:53)
[2021-06-02] MEDS: Atorvastatin Calcium 40 MG Tablet PO (21:53)
[2021-06-02] MEDS: Acetaminophen 500 MG Tablet 1000 MG PO (21:55)
[2021-06-03] MEDS: Menthol/Lanolin/Calamine/Znox 113 GM Tube 1 APPLIC TOPICAL (05:49)
[2021-06-03] MEDS: Nystatin Powder 15gm Bottle 1 APPLIC TOPICAL (05:49)
[2021-06-03] MEDS: amLODIPine 5 MG Tablet PO (05:50)
[2021-06-03] MEDS: Levothyroxine 50 MCG Tablet PO (05:50)
[2021-06-03] MEDS: Mirabegron 25 MG TAB.ER.24H PO (05:50)
[2021-06-03] MEDS: Clopidogrel Bisulfate 75 MG Tablet PO (05:51)
[2021-06-03 05:53] VITALS: BP 134/68; PULSE 71
[2021-06-03] MEDS: Iron Polysaccharide Complex 150 MG CAPSULE PO (08:48)
[2021-06-03 08:50] LABS: Absolute Lymphocyte Count 1.74 X10^3/uL (0.83-4.51); Absolute Neutrophil Count 3.6 X10^3/uL (2.0-7.7); Basophil# 0.07 X10^3/uL; Eosinophil# 0.49 X10^3/uL; Eosinophils% 7.1 % (0-5); Hematocrit 34.6 % (37-47); Hemoglobin 10.9 g/dL (12.0-15.0); Lymphocyte # 1.74 X10^3/ul (0.83-4.51); Lymphocyte % 25.1 % (19-41); Mean Corp Hgb Conc 31.5 g/dL (32-36); Mean Corpuscular Hgb 29.9 pg (27.0-32.0); Mean Corpuscular Volume 95.1 fL (81-99); Mean Platelet Vol. 8.4 fl (6.2-12.0); Monocyte% 14.5 % (0-10); NRBC Flagged by Analyzer 0 % (0-5); Neutrophil # 3.56 X10^3/uL (2.7-7.7); Neutrophil % 51.4 % (47-70); Platelet Count 459 K/mm3 (150-450); RBC Distribution Width CV 12.5 % (11.6-14.6); RBC Distribution Width SD 43.5 fl (35.1-43.9); Red Blood Count 3.64 M/mm3 (4.2-5.4); White Blood Count 6.9 K/mm3 (4.4-11.0)
[2021-06-03 09:00] VITALS: PULSE 80; RESP 18; O2SAT 97
[2021-06-03 09:06] VITALS: BP 118/63; PULSE 81; RESP 18; TEMP 36.1; O2SAT 99
[2021-06-03 09:08] LABS: Anion Gap 5 (5-15); BUN 17 mg/dL (7-18); BUN/Creat Ratio 17.2 RATIO (10-20); Chloride 105 mmol/L (98-107); Creatinine, Serum 0.99 mg/dL (0.55-1.02); EST Glomerular Filtration Rate 57 mL/min (>60); Est Glom Filt Rate - Afr Amer 69 mL/min (>60); Estimated Creatinine Clearance 37.38 ml/min; Glucose 91 mg/dL (74-106); Potassium 5.2 mmol/L (3.5-5.1); Sodium Level 138 mmol/L (136-145)
--- NOTE | 2021-06-03 09:19 | NURSING ---
Addendum entered by Malgorzata Negro 06/03/21 09:20: correction potassium 5.2 Original Note: Dr Baker notified of potassium 5.1 today, new order to give x1 dose of Kayexalate before DC today. updated daughter and pt at bedside. pt to f/u with Dr Ace for now until she goes back to [place].
[2021-06-03] MEDS: Sodium Polystyrene Sulfonate 15 GM/60 ML UDC PO (09:26)
== END 2021-06-03 09:45 | disposition home health service (06) | DRG 559 ==
PROVIDERS: Admitting Provider Family Medicine Geriatric Medicine; Visit Provider Family Medicine Geriatric Medicine
DX: S72.011D Unspecified intracapsular fracture of right femur, subsequent encounter for closed fracture with routine healing (principal); J18.9 Pneumonia, unspecified organism; W19.XXXD Unspecified fall, subsequent encounter; E03.9 Hypothyroidism, unspecified; E78.5 Hyperlipidemia, unspecified; I12.9 Hypertensive chronic kidney disease with stage 1 through stage 4 chronic kidney disease, or unspecified chronic kidney disease; N18.31 Chronic kidney disease, stage 3a; N32.81 Overactive bladder; H81.10 Benign paroxysmal vertigo, unspecified ear; Z79.899 Other long term (current) drug therapy; Z79.890 Hormone replacement therapy; Z79.02 Long term (current) use of antithrombotics/antiplatelets; Z96.641 Presence of right artificial hip joint
CPT/HCPCS: 36415; 74018; 80048; 85014; 85018; 85025; 86850; 86900; 86901; 86920; 86922; 97110; 97116; 97163; 97165; 97530; 97535; 97802

== ENCOUNTER → 2021-05-24 08:11 | Outpatient (CLI) | payer MEDICARE, SELFPAY ==
[2021-05-24] VITALS (7 sets, daily range): BP systolic 102–120; BP diastolic 54–70; PULSE 74–80; RESP 16–18; TEMP 36.2–36.6; O2SAT 95–99
[2021-05-24] MEDS: 0.9% NaCl Peripheral Flush Adult/Peds IV ×2 (08:30→13:33)
[2021-05-24] MEDS: Furosemide 20 MG/2 ML VIAL IV (10:50)
== END ==
PROVIDERS: Referring Provider Family Medicine Geriatric Medicine; Visit Provider Family Medicine Geriatric Medicine
DX: D64.9 Anemia, unspecified (principal)
CPT/HCPCS: 36415; 36430; 86850; 86900; 86901; 86920; 86922; J7040; P9016; A4216; J1940

== ENCOUNTER → 2021-06-13 16:49 | Outpatient (CLI) | payer MEDICARE, SELFPAY ==
[2021-06-13 17:22] LABS: Basophil# 0.07 X10^3/uL; Basophil% 0.6 % (0-1); Eosinophil# 0.45 X10^3/uL; Eosinophils% 4.2 % (0-5); Hematocrit 36.6 % (37-47); Hemoglobin 11.9 g/dL (12.0-15.0); Lymphocyte % 17.5 % (19-41); Mean Corp Hgb Conc 32.5 g/dL (32-36); Mean Corpuscular Hgb 29.8 pg (27.0-32.0); Mean Corpuscular Volume 91.5 fL (81-99); Mean Platelet Vol. 8.5 fl (6.2-12.0); Monocyte# 1.33 X10^3/uL; Monocyte% 12.3 % (0-10); NRBC Flagged by Analyzer 0 % (0-5); Neutrophil # 7.02 X10^3/uL (2.7-7.7); Neutrophil % 64.8 % (47-70); Platelet Count 350 K/mm3 (150-450); RBC Distribution Width CV 12.6 % (11.6-14.6); RBC Distribution Width SD 41.6 fl (35.1-43.9); White Blood Count 10.8 K/mm3 (4.4-11.0)
[2021-06-13 18:50] LABS: Vitamin D,25 Hydroxy 45.1 ng/mL
[2021-06-13 19:08] LABS: ALB/GLOB Ratio 0.9 RATIO (0.9-2.4); AST(SGOT) 28 U/L (15-37); Alanine Aminotransfer ALT/SGPT 29 U/L (13-56); Albumin, Serum 3.4 g/dL (3.2-5.0); Alkaline Phosphatase 113 U/L (45-117); Anion Gap 9 (5-15); BUN 13 mg/dL (7-18); BUN/Creat Ratio 12.1 RATIO (10-20); Calcium,Total 9.5 mg/dL (8.5-10.1); Chloride 100 mmol/L (98-107); Creatinine, Serum 1.07 mg/dL (0.55-1.02); EST Glomerular Filtration Rate 52 mL/min (>60); Est Glom Filt Rate - Afr Amer 63 mL/min (>60); Globulin 3.9 g/dL (2.2-4.2); Glucose 100 mg/dL (74-106); Potassium 4.3 mmol/L (3.5-5.1); Protein, Total 7.3 g/dL (6.4-8.2); Sodium Level 136 mmol/L (136-145); Thyroid Stim Hormone (TSH) 5.03 uIU/mL (0.358-3.74)
== END ==
PROVIDERS: Visit Provider Family Medicine Geriatric Medicine
DX: E55.9 Vitamin D deficiency, unspecified (principal); R53.83 Other fatigue
CPT/HCPCS: 36415; 80053; 82306; 84443; 85025